=== PATIENT | female | born 2000 | race Caucasian/White ===

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

== ENCOUNTER → 2020-06-26 | Outpatient (CLI) | payer OTHER ==
[~2020-06-26] MED LIST changes: +[UNRECOGNIZED DRUG - OTHER]
== END | disposition home or self-care (01) ==
LOC: LAB SHORT 14:26 → LAB EV 14:26
DX: J03.90 Acute tonsillitis, unspecified (principal)
CPT/HCPCS: 87081

== ENCOUNTER → 2021-12-27 | Outpatient (CLI) | payer OTHER | END | disposition home or self-care (01) | LOC: LAB SHORT 15:03 → LAB 15:03 | DX: N10 Acute pyelonephritis (principal) | CPT/HCPCS: 87077; 87086; 87186 ==

== ENCOUNTER → 2022-03-01 | Outpatient (CLI) | payer OTHER | END | disposition home or self-care (01) | LOC: LAB SHORT 17:57 → LAB 17:57 | DX: N12 Tubulo-interstitial nephritis, not specified as acute or chronic (principal) | CPT/HCPCS: 87077; 87086; 87186 ==

== ENCOUNTER → 2022-06-15 | Outpatient (CLI) | payer OTHER | END | disposition home or self-care (01) | LOC: LAB 14:55 → LAB SHORT 14:55 | DX: N12 Tubulo-interstitial nephritis, not specified as acute or chronic (principal) | CPT/HCPCS: 87077; 87086; 87186 ==

== ENCOUNTER 2022-09-18 22:48 | Emergency (ER) | payer OTHER ==
[~2022-09-18] VITALS: Ht 152.4 cm; Wt 61.2 kg
[2022-09-19] MEDS ORDERED: FAMO20 PO (01:00)
== END 2022-09-19 01:00 | disposition home or self-care (01) ==
LOC: ER 22:48
DX: K62.5 Hemorrhage of anus and rectum (principal); J45.909 Unspecified asthma, uncomplicated; Z91.040 Latex allergy status
CPT/HCPCS: 82272; 99282

== ENCOUNTER → 2023-10-26 | Outpatient (CLI) | payer SELFPAY ==
[~2023-10-26] MED LIST changes: +FAMO20 PO
== END ==
LOC: LAB 12:31 → LAB SHORT 12:31
DX: N39.0 Urinary tract infection, site not specified (principal)
CPT/HCPCS: 87077; 87086; 87186

== ENCOUNTER 2024-11-25 14:34 | Emergency (ER) | payer OTHER ==
[~2024-11-25] VITALS: Ht 157.5 cm; Wt 72.6 kg
[2024-11-25] MEDS ORDERED: Ondansetron 4 MG SoluTab MM ONE (14:45)
[2024-11-25 14:55] LABS: BASOPHILS ABSOLUTE AUTO 0.03 K/mm3 (0.00-0.23); BASOPHILS PERCENT AUTO 0 % (0-2); EOSINOPHILS PERCENT AUTO 0 % (0-6); Hematocrit 42.9 % (33.0-51.0); IMMATURE GRAN ABSOLUTE AUTO 0.06 K/mm3 (0.00-0.10); IMMATURE GRAN PERCENT AUTO 0 % (0-1); LYMPHOCYTES PERCENT AUTO 11 % (21-46); MONOCYTES PERCENT AUTO 7 % (4-13); Mean Corpuscular HGB 34.7 pg (26.0-34.0); Mean Corpuscular HGB Conc 37.3 g/dL (31.5-36.5); Mean Corpuscular Volume 93 fL (80-100); Mean Platelet Volume 9.5 fL (9.1-12.4); NEUTROPHILS ABSOLUTE AUTO 12.44 K/mm3 (1.96-9.15); NEUTROPHILS PERCENT AUTO 82 % (41-73); Platelet Count 371 K/mm3 (150-400); RDW Coefficient Variation 11.5 % (11.7-14.2); RDW Standard Deviation 39.1 fL (35.1-46.3); Red Blood Cell Count 4.61 M/mm3 (3.80-5.20); White Blood Cell Count 15.23 K/mm3 (4.00-11.30)
[2024-11-25 15:31] LABS: Source, Urine Voided
[2024-11-25 15:36] LABS: Appearance, Urine Cloudy (Clear); Blood, Urine 3+ (Neg); Color, Urine Amber (P-Yellow); Glucose Qualitative, Urine Neg (Neg); Ketones, Urine 1+ (Neg); Leukocyte Esterase, Urine 3+ (Neg); Nitrite, Urine Pos (Neg); Protein, Urine 3+ (Neg); Urobilinogen, Urine 3+ (Normal)
[2024-11-25 15:38] LABS: Albumin, Blood 3.4 g/dL (3.4-5.0); Albumin/Globulin Ratio 0.7 (0.8-1.8); Bilirubin, Total 1.6 mg/dL (0.1-1.0); Bun/Creatinine Ratio 8.3 (12.0-20.0); Calcium, Blood 9.4 mg/dL (8.5-10.1); Creatinine, Blood 0.48 mg/dL (0.40-1.00); Globulin, Blood 4.6 g/dL (2.2-4.0); Potassium, Blood 2.9 mmol/L (3.5-5.5)
[2024-11-25] MEDS ORDERED: Ondansetron HCl 2 MG / ML 2ML Vial IV ONE (15:45)
[2024-11-25 16:00] LABS: Bilirubin, Urine 1+ (Neg)
[2024-11-25 16:01] LABS: White Blood Cells, Urine TNTC /hpf (0-5)
[2024-11-25 16:02] LABS: Bacteria Many /hpf; Squamous Epithelial Cells Mod /hpf (Few)
[2024-11-25] MEDS ORDERED: CefTRIAXone Sodium 1,000 MG in NS 50 ML IV ONE (17:20)
[2024-11-25] MEDS ORDERED: Ketorolac Tromethamine 30mg Vial IV ONE (17:35)
[2024-11-25 17:37] VITALS: BP 108/84
[2024-11-25] MEDS ORDERED: ONDA4ODT MM (17:40)
[2024-11-25] MEDS ORDERED: IBUP600 PO (17:40)
[2024-11-25] MEDS ORDERED: CEPH500 PO (17:40)
== END 2024-11-25 17:56 | disposition home or self-care (01) ==
LOC: ER 14:34
PROVIDERS: Emergency Medicine
DX: K85.90 Acute pancreatitis without necrosis or infection, unspecified (principal); N39.0 Urinary tract infection, site not specified; K70.9 Alcoholic liver disease, unspecified; J45.909 Unspecified asthma, uncomplicated; Z91.040 Latex allergy status; Z79.899 Other long term (current) drug therapy
CPT/HCPCS: 74177; 76705; 80053; 81001; 81025; 83690; 85025; 87077; 87086; 87186; 96365-59; 96375; 99284-25; J0696; J1885; J2405; Q9967

== ENCOUNTER → 2025-04-06 | Outpatient (CLI) | payer OTHER ==
[~2025-04-06] MED LIST changes: +CEPH500 PO; +IBUP600 PO; +K-Dur20 MEQ PO; +Naltrexone HCl50 MG PO; +ONDA4ODT MM; +Protonix40 MG PO
[2025-04-06 14:38] LABS: BASOPHILS ABSOLUTE AUTO 0.02 K/mm3 (0.00-0.23); BASOPHILS PERCENT AUTO 0 % (0-2); EOSINOPHILS ABSOLUTE AUTO 0.06 K/mm3 (0.00-0.68); EOSINOPHILS PERCENT AUTO 1 % (0-6); Hematocrit 33.7 % (33.0-51.0); Hemoglobin 12.1 g/dL (11.5-16.0); IMMATURE GRAN ABSOLUTE AUTO 0.05 K/mm3 (0.00-0.10); IMMATURE GRAN PERCENT AUTO 1 % (0-1); LYMPHOCYTES ABSOLUTE AUTO 1.52 K/mm3 (0.84-5.20); LYMPHOCYTES PERCENT AUTO 18 % (21-46); MONOCYTES ABSOLUTE AUTO 0.89 K/mm3 (0.16-1.47); MONOCYTES PERCENT AUTO 11 % (4-13); Mean Corpuscular HGB 33.7 pg (26.0-34.0); Mean Corpuscular HGB Conc 35.9 g/dL (31.5-36.5); Mean Corpuscular Volume 94 fL (80-100); NEUTROPHILS ABSOLUTE AUTO 5.78 K/mm3 (1.96-9.15); NEUTROPHILS PERCENT AUTO 70 % (41-73); Platelet Count 279 K/mm3 (150-400); RDW Coefficient Variation 11.9 % (11.7-14.2); RDW Standard Deviation 41.1 fL (35.1-46.3); Red Blood Cell Count 3.59 M/mm3 (3.80-5.20); White Blood Cell Count 8.32 K/mm3 (4.00-11.30)
[2025-04-06 14:54] LABS: Albumin, Blood 3.1 g/dL (3.4-5.0); Albumin/Globulin Ratio 0.7 (0.8-1.8); Bilirubin, Total 1.6 mg/dL (0.1-1.0); Bun/Creatinine Ratio 7.7 (12.0-20.0); Calcium, Blood 9.3 mg/dL (8.5-10.1); Creatinine, Blood 0.52 mg/dL (0.40-1.00); Globulin, Blood 4.3 g/dL (2.2-4.0); Total Protein, Blood 7.4 g/dL (6.4-8.2)
[2025-04-08 09:26] LABS: HEPATITIS A ANTIBODY, IGM Negative (Negative); HEPATITIS B CORE ANTIBODY, IGM Negative (Negative); HEPATITIS B SURFACE ANTIGEN Negative (Negative); HEPATITIS C AB CIA INTERP Negative (Negative); HEPATITIS C ANTIBODY CIA INDEX 0.03 IV
== END | disposition home or self-care (01) ==
LOC: LAB SHORT 14:34 → LAB 14:34
PROVIDERS: Physician Assistant Medical
DX: R07.9 Chest pain, unspecified (principal); R74.8 Abnormal levels of other serum enzymes
CPT/HCPCS: 80053; 80074; 85025

== ENCOUNTER 2025-04-30 06:08 | Emergency (ER) | payer OTHER ==
[~2025-04-30] VITALS: Ht 157.5 cm; Wt 59.0 kg
[2025-04-30] MEDS ORDERED: PANTOPRAZOLE SO40 M2 PO (06:23)
[2025-04-30] MEDS ORDERED: FLUTICASONE PRO16 GM NS (06:23)
[2025-04-30] MEDS ORDERED: LOTREXONE1.5 MG PO (06:23)
[2025-04-30 07:07] LABS: Alanine Aminotransfer (ALT/SGP 106.0 U/L (12-78); Albumin, Blood 2.9 g/dL (3.4-5.0); Albumin/Globulin Ratio 0.7 (0.8-1.8); Anion Gap 11.0 mmol/L (3-11); Aspartate Aminotrans (AST/SGOT 308.0 U/L (12-37); Bilirubin, Total 1.2 mg/dL (0.1-1.0); Blood Urea Nitrogen 1.0 mg/dL (8-24); CO2, Blood 27.0 mmol/L (21-32); Calcium, Blood 8.7 mg/dL (8.5-10.1); Chloride, Blood 101.0 mmol/L (98-108); Creatinine, Blood 0.31 mg/dL (0.40-1.00); Globulin, Blood 4.3 g/dL (2.2-4.0); Glucose, Blood 98.0 mg/dL (70-99); Potassium, Blood 3.1 mmol/L (3.5-5.5); Sodium, Blood 136.0 mmol/L (136-145); Total Protein, Blood 7.2 g/dL (6.4-8.2)
[2025-04-30 07:12] LABS: BASOPHILS ABSOLUTE AUTO 0.03 K/mm3 (0.00-0.23); BASOPHILS PERCENT AUTO 0 % (0-2); EOSINOPHILS ABSOLUTE AUTO 0.08 K/mm3 (0.00-0.68); EOSINOPHILS PERCENT AUTO 1 % (0-6); Hematocrit 34.1 % (33.0-51.0); Hemoglobin 12.4 g/dL (11.5-16.0); IMMATURE GRAN ABSOLUTE AUTO 0.02 K/mm3 (0.00-0.10); IMMATURE GRAN PERCENT AUTO 0 % (0-1); LYMPHOCYTES ABSOLUTE AUTO 1.91 K/mm3 (0.84-5.20); LYMPHOCYTES PERCENT AUTO 27 % (21-46); MONOCYTES ABSOLUTE AUTO 0.62 K/mm3 (0.16-1.47); MONOCYTES PERCENT AUTO 9 % (4-13); Mean Corpuscular HGB Conc 36.4 g/dL (31.5-36.5); Mean Corpuscular Volume 95 fL (80-100); NEUTROPHILS ABSOLUTE AUTO 4.45 K/mm3 (1.96-9.15); NEUTROPHILS PERCENT AUTO 63 % (41-73); NRBC ABSOLUTE 0.00 K/mm3 (0.00-0.02); NRBC Auto 0.0 /100 WBC (0.0-0.2); RDW Coefficient Variation 12.9 % (11.7-14.2); RDW Standard Deviation 44.6 fL (35.1-46.3)
[2025-04-30] MEDS ORDERED: NS 1,000 ML IV SCH (07:25)
[2025-04-30 07:26] LABS: Source, Urine Clean Catch
[2025-04-30 07:31] LABS: Color, Urine Yellow (P-Yellow); Glucose Qualitative, Urine Neg (Neg); Ketones, Urine Neg (Neg); Leukocyte Esterase, Urine 1+ (Neg); Protein, Urine 2+ (Neg); Specific Gravity, Urine 1.010 (1.003-1.022); Urobilinogen, Urine 3+ (Normal)
[2025-04-30 07:32] LABS: Platelet Count 298 K/mm3 (150-400)
[2025-04-30 07:33] LABS: Bilirubin, Urine 1+ (Neg)
[2025-04-30 07:42] LABS: Magnesium, Blood 1.8 mg/dL (1.6-2.4); Phosphorus, Blood 2.7 mg/dL (2.5-4.9); Thyroid Stimulating Hormone 2.96 uIU/mL (0.360-4.800)
[2025-04-30 07:43] LABS: Red Blood Cells, Urine 0-2 /hpf (0-2)
[2025-04-30] MEDS ORDERED: Ondansetron HCl 2 MG / ML 2ML Vial IV ONE (08:00)
[2025-04-30] MEDS ORDERED: K-Dur20 MEQ PO (08:50)
[2025-04-30 08:55] VITALS: BP 108/78
== END 2025-04-30 09:00 | disposition home or self-care (01) ==
LOC: ER 06:08
PROVIDERS: Student in an Organized Health Care Education/Training Program
DX: E87.6 Hypokalemia (principal); K52.9 Noninfective gastroenteritis and colitis, unspecified; R74.01 Elevation of levels of liver transaminase levels; J45.909 Unspecified asthma, uncomplicated; Z79.2 Long term (current) use of antibiotics; Z88.1 Allergy status to other antibiotic agents; Z91.040 Latex allergy status; Z79.899 Other long term (current) drug therapy
CPT/HCPCS: 80053; 81001; 83735; 84100; 84443; 85025; 87086; 96361; 96374; 99284-25; A9270; J2405; J7030

== ENCOUNTER 2025-05-22 15:37 | Emergency (ER) | payer OTHER ==
[~2025-05-22] VITALS: Ht 152.4 cm; Wt 60.3 kg
[~2025-05-22 15:37] MED LIST changes: +FLUTICASONE PRO16 GM NS; +LOTREXONE1.5 MG PO; +PANTOPRAZOLE SO40 M2 PO
[2025-05-22] MEDS ORDERED: Potassium Chl 20MEQ/Water100ML 100 ML IV ONE (15:55)
[2025-05-22] MEDS ORDERED: NS 1,000 ML IV ONE (18:02)
[2025-05-22] MEDS ORDERED: Ondansetron HCl 2 MG / ML 2ML Vial IV ONE (18:10)
[2025-05-22 18:15] VITALS: BP 117/76
[2025-05-22] MEDS ORDERED: Metoclopramide HCl 5MG / ML 2ML Vial IV ONE (19:30)
[2025-05-22] MEDS ORDERED: METO10 PO (20:47)
[2025-05-22] MEDS ORDERED: POTA20LUD PO (20:47)
== END 2025-05-22 20:57 | disposition home or self-care (01) ==
LOC: ER 15:37
DX: E87.6 Hypokalemia (principal); Z88.1 Allergy status to other antibiotic agents; Z91.040 Latex allergy status; Z79.899 Other long term (current) drug therapy; J45.909 Unspecified asthma, uncomplicated
CPT/HCPCS: 36415; 80053; 96365; 96366; 96375; 99284-25; A9270; J2405; J2765; J3480; J7030

== ENCOUNTER 2025-07-02 06:10 | Inpatient (IN) | payer OTHER ==
[~2025-07-02] VITALS: Ht 160 cm; Wt 61.3 kg
[~2025-07-02 06:10] MED LIST changes: +METO10 PO; +POTA20LUD PO
[2025-07-02] MEDS ORDERED: Ondansetron HCl 2 MG / ML 2ML Vial IV PRN (07:50)
[2025-07-02 08:16] LABS: BASOPHILS ABSOLUTE AUTO 0.03 K/mm3 (0.00-0.23); BASOPHILS PERCENT AUTO 0 % (0-2); EOSINOPHILS ABSOLUTE AUTO 0.03 K/mm3 (0.00-0.68); EOSINOPHILS PERCENT AUTO 0 % (0-6); Hematocrit 32.8 % (33.0-51.0); Hemoglobin 11.3 g/dL (11.5-16.0); IMMATURE GRAN ABSOLUTE AUTO 0.02 K/mm3 (0.00-0.10); IMMATURE GRAN PERCENT AUTO 0 % (0-1); LYMPHOCYTES ABSOLUTE AUTO 1.02 K/mm3 (0.84-5.20); LYMPHOCYTES PERCENT AUTO 10 % (21-46); MONOCYTES ABSOLUTE AUTO 0.87 K/mm3 (0.16-1.47); MONOCYTES PERCENT AUTO 8 % (4-13); Mean Corpuscular HGB Conc 34.5 g/dL (31.5-36.5); Mean Corpuscular Volume 100 fL (80-100); NEUTROPHILS ABSOLUTE AUTO 8.74 K/mm3 (1.96-9.15); NEUTROPHILS PERCENT AUTO 82 % (41-73); NRBC ABSOLUTE 0.00 K/mm3 (0.00-0.02); NRBC Auto 0.0 /100 WBC (0.0-0.2); Platelet Count 230 K/mm3 (150-400); RDW Coefficient Variation 13.3 % (11.7-14.2); RDW Standard Deviation 48.4 fL (35.1-46.3)
[2025-07-02 08:33] LABS: Alanine Aminotransfer (ALT/SGP 80 U/L (12-78); Albumin, Blood 2.8 g/dL (3.4-5.0); Albumin/Globulin Ratio 0.6 (0.8-1.8); Anion Gap 11 mmol/L (3-11); Aspartate Aminotrans (AST/SGOT 301 U/L (12-37); Beta HCG, Quantitative, Serum <1 mIU/mL (0-3); Bilirubin, Total 4.0 mg/dL (0.1-1.0); Blood Urea Nitrogen 2 mg/dL (8-24); CO2, Blood 25 mmol/L (21-32); Calcium, Blood 8.2 mg/dL (8.5-10.1); Chloride, Blood 99 mmol/L (98-108); Creatinine, Blood 0.26 mg/dL (0.40-1.00); Globulin, Blood 4.4 g/dL (2.2-4.0); Glucose, Blood 86 mg/dL (70-99); Potassium, Blood 2.9 mmol/L (3.5-5.5); Sodium, Blood 132 mmol/L (136-145); Total Protein, Blood 7.2 g/dL (6.4-8.2)
[2025-07-02 09:29] LABS: Bilirubin, Direct 2.6 mg/dL (0.0-0.3)
[2025-07-02] MEDS ORDERED: Metoclopramide HCl 5MG / ML 2ML Vial IV ONE ×2 (09:55→16:00)
[2025-07-02] MEDS ORDERED: DiphenhydrAMINE HCl 50 MG/ML 1ML Vial IV ONE ×2 (09:55→15:55)
[2025-07-02] MEDS ORDERED: Potassium Chl 20MEQ/Water100ML 100 ML IV SCH (10:10)
[2025-07-02] MEDS ORDERED: Ketorolac Tromethamine 30mg Vial IV ONE ×2 (10:10→15:55)
[2025-07-02] MEDS ORDERED: NS 1,000 ML IV SCH (10:50)
[2025-07-02] MEDS ORDERED: Metoclopramide HCl 5MG / ML 2ML Vial IV PRN (17:10)
[2025-07-02] MEDS ORDERED: Witch Hazel/Glycerin PADS TOP SCH (18:55)
--- NOTE | 2025-07-02 21:45 | NUR ---
ARRIVAL NOTE PT ARRIVED TO UNIT AT APPROX 2145 TODAY. IS A/OX4 WITH VSS. ABLE TO TRANSFER SELF FROM [facility] WITHOUT DIFFICULTY. DENIES N/V AND PAIN AT THIS TIME. IV INFUSING PER ORDERS. ORIENTATION TO ROOM PROVIDED. PT VERBALIZES UNDERSTANDING AND DENIES NEEDS. HAS CALL LIGHT IN REACH
[2025-07-02] MEDS ORDERED: Ketorolac Tromethamine 15mg Vial IV PRN (23:45)
--- NOTE | 2025-07-03 01:40 | NUR ---
ASSUMED CARE OF PT AT APPROX 2330 FROM CHRISTEN Levi RN. WHEN DOING BEDSIDE REPORT PT REPORTED PAIN 8/10, CALLED DR PADILLA & SHE ORDERED TORADOL SINCE IT WAS GIVEN IN ER. WHEN I WENT TO REASSESS PAIN LEVEL PT STATES SHE IS 7/10 & HAS VERY LITTLE PAIN RELIEF FROM THE TORADOL, AWAITING CALL BACK FROM DR MIKE REGARDING SOMETHING ELSE FOR PAIN.
[2025-07-03] MEDS ORDERED: FentaNYL Citrate 50 MCG/ML 2 ML Injection IV PRN (01:50)
[2025-07-03] MEDS ORDERED: HYDROmorphone HCl/Pf 1MG SYR IV ONE (01:50)
[2025-07-03] MEDS ORDERED: Ondansetron HCl 2 MG / ML 2ML Vial IV PRN (01:50)
[2025-07-03 04:04] VITALS: BP 108/72
[2025-07-03 05:11] LABS: BASOPHILS ABSOLUTE AUTO 0.02 K/mm3 (0.00-0.23); BASOPHILS PERCENT AUTO 0 % (0-2); EOSINOPHILS ABSOLUTE AUTO 0.01 K/mm3 (0.00-0.68); EOSINOPHILS PERCENT AUTO 0 % (0-6); Hematocrit 29.0 % (33.0-51.0); Hemoglobin 9.8 g/dL (11.5-16.0); IMMATURE GRAN ABSOLUTE AUTO 0.04 K/mm3 (0.00-0.10); IMMATURE GRAN PERCENT AUTO 1 % (0-1); LYMPHOCYTES ABSOLUTE AUTO 0.79 K/mm3 (0.84-5.20); LYMPHOCYTES PERCENT AUTO 9 % (21-46); MONOCYTES ABSOLUTE AUTO 0.66 K/mm3 (0.16-1.47); MONOCYTES PERCENT AUTO 8 % (4-13); Mean Corpuscular HGB Conc 33.8 g/dL (31.5-36.5); Mean Corpuscular Volume 102 fL (80-100); NEUTROPHILS ABSOLUTE AUTO 7.15 K/mm3 (1.96-9.15); NEUTROPHILS PERCENT AUTO 83 % (41-73); NRBC ABSOLUTE 0.00 K/mm3 (0.00-0.02); NRBC Auto 0.0 /100 WBC (0.0-0.2); Platelet Count 179 K/mm3 (150-400); RDW Coefficient Variation 13.7 % (11.7-14.2); RDW Standard Deviation 51.2 fL (35.1-46.3)
[2025-07-03 05:25] LABS: Prothrombin Time Results 14.0 Sec (9.7-11.5)
[2025-07-03 05:38] LABS: Alanine Aminotransfer (ALT/SGP 70.0 U/L (12-78); Albumin, Blood 2.5 g/dL (3.4-5.0); Albumin/Globulin Ratio 0.7 (0.8-1.8); Anion Gap 11.0 mmol/L (3-11); Aspartate Aminotrans (AST/SGOT 278.0 U/L (12-37); Bilirubin, Direct 2.9 mg/dL (0.0-0.3); Bilirubin, Total 3.8 mg/dL (0.1-1.0); Blood Urea Nitrogen 2.0 mg/dL (8-24); CO2, Blood 23.0 mmol/L (21-32); Calcium, Blood 7.8 mg/dL (8.5-10.1); Chloride, Blood 104.0 mmol/L (98-108); Creatinine, Blood 0.31 mg/dL (0.40-1.00); Globulin, Blood 3.6 g/dL (2.2-4.0); Glucose, Blood 88.0 mg/dL (70-99); Glutamyl Transpeptidase, GGT 626.0 U/L (5-55); Magnesium, Blood 1.6 mg/dL (1.6-2.4); Potassium, Blood 3.8 mmol/L (3.5-5.5); Sodium, Blood 134.0 mmol/L (136-145); Total Protein, Blood 6.1 g/dL (6.4-8.2)
--- NOTE | 2025-07-03 05:49 | NUR ---
SHIFT SUMMARY AOX4. VSS. REPORTED NAUSEA, MEDICATED 1x W/PO ZOFRAN- NO EMESIS SINCE ARRIVING TO UNIT. TOLERATING DIET. REPORTED 7-8/10 R SIDE ABD PAIN, PT ABLE TO REST COMFORTABLY AFTER RECIEVING 1MG IV DILAUDID. HAS VOIDED IND IN RESTROOM. CALL LIGHT IN REACH & PT ABLE TO MAKE NEEDS KNOWN.
[2025-07-03 07:14] VITALS: BP 108/67
[2025-07-03] MEDS ORDERED: FLU VACC TS2025-26(6MOS UP)/PF 45 MCG/0.5 ML SYRINGE IM SCH (09:00)
[2025-07-03] MEDS ORDERED: NS 1,000 ML IV SCH (16:00)
[2025-07-03 16:23] VITALS: BP 94/55
--- NOTE | 2025-07-03 18:43 | NUR ---
SUMMARY: PT IS A/O, VSS. HIDA COMPLETED TODAY. PT CONTINUES TO HAVE ABD PAIN, INTERMITTANT NAUSEA. TOLERATING CLEAR LIQ, NO EMESIS. INDEP IN ROOM, URINE IS DECREASED AND GERALDINE, DR. HERNANDEZ MADE AWARE AND IV FLUIDS TO INFUSE TONIGHT. MEDICATED PER EMAR FOR PAIN.NO ACUTE CONCERNS.
[2025-07-03 20:08] VITALS: BP 106/67
--- NOTE | 2025-07-04 04:44 | NUR ---
SHIFT SUMMARY PT HAS RESTED MOST THE NIGHT, STILL HAVING INTERMITTENT PAIN AND NAUSEA. PT MEDICATED PER EMAR. PT HAS HAD NO VOMITTING AND WAS ABLE TO KEEP DOWN HER DINNER. PT REPORTS THAT HE HAS HAD LOOSE STOOLS. UP AND AMBULATING INDEPENDENTLY IN ROOM. VITALS STABLE. PLAN OF CARE REMAINS UNCHANGED. BED IN LOWEST POSITION, CALL LIGHT WITHIN REACH.
[2025-07-04 05:28] VITALS: BP 100/56
[2025-07-04 06:14] LABS: BASOPHILS ABSOLUTE AUTO 0.03 K/mm3 (0.00-0.23); BASOPHILS PERCENT AUTO 0 % (0-2); EOSINOPHILS ABSOLUTE AUTO 0.04 K/mm3 (0.00-0.68); EOSINOPHILS PERCENT AUTO 1 % (0-6); Hematocrit 29.6 % (33.0-51.0); Hemoglobin 9.7 g/dL (11.5-16.0); IMMATURE GRAN ABSOLUTE AUTO 0.03 K/mm3 (0.00-0.10); IMMATURE GRAN PERCENT AUTO 0 % (0-1); LYMPHOCYTES ABSOLUTE AUTO 1.38 K/mm3 (0.84-5.20); LYMPHOCYTES PERCENT AUTO 17 % (21-46); MONOCYTES ABSOLUTE AUTO 0.57 K/mm3 (0.16-1.47); MONOCYTES PERCENT AUTO 7 % (4-13); Mean Corpuscular HGB Conc 32.8 g/dL (31.5-36.5); Mean Corpuscular Volume 105 fL (80-100); NEUTROPHILS ABSOLUTE AUTO 6.23 K/mm3 (1.96-9.15); NEUTROPHILS PERCENT AUTO 75 % (41-73); NRBC ABSOLUTE 0.00 K/mm3 (0.00-0.02); NRBC Auto 0.0 /100 WBC (0.0-0.2); Platelet Count 194 K/mm3 (150-400); RDW Coefficient Variation 13.9 % (11.7-14.2); RDW Standard Deviation 53.1 fL (35.1-46.3)
[2025-07-04 06:50] LABS: Alanine Aminotransfer (ALT/SGP 65 U/L (12-78); Albumin, Blood 2.2 g/dL (3.4-5.0); Albumin/Globulin Ratio 0.6 (0.8-1.8); Anion Gap 9 mmol/L (3-11); Aspartate Aminotrans (AST/SGOT 240 U/L (12-37); Bilirubin, Total 3.5 mg/dL (0.1-1.0); Blood Urea Nitrogen <1 mg/dL (8-24); CO2, Blood 25 mmol/L (21-32); Calcium, Blood 8.0 mg/dL (8.5-10.1); Chloride, Blood 108 mmol/L (98-108); Creatinine, Blood 0.34 mg/dL (0.40-1.00); Globulin, Blood 3.6 g/dL (2.2-4.0); Glucose, Blood 76 mg/dL (70-99); Potassium, Blood 3.9 mmol/L (3.5-5.5); Sodium, Blood 138 mmol/L (136-145); Total Protein, Blood 5.8 g/dL (6.4-8.2)
[2025-07-04 07:03] VITALS: BP 105/74
[2025-07-04] MEDS ORDERED: HYDROcodone 5-APAP 325 TAB PO PRN (11:55)
--- NOTE | 2025-07-04 13:29 | NUR ---
PT WITH LOOSE STOOLS. REQUESTING IMODIUM. PLAN IS TO CONTACT MD AND REQUEST THIS FOR PT. WILL CONTINUE TO MONITOR.
[2025-07-04 15:14] VITALS: BP 105/64
[2025-07-04 19:24] VITALS: BP 120/76
[2025-07-04] MEDS ORDERED: Prochlorperazine Edisylate 10 mg Vial IV PRN (20:15)
[2025-07-04] MEDS ORDERED: Ondansetron HCl 2 MG / ML 2ML Vial IV PRN (20:15)
--- NOTE | 2025-07-04 22:02 | NUR ---
NAUSEA/EMESIS *LATE ENTRY* WHILE RECIEVING BEDSIDE REPORT PT STARTS HAVING EMESIS, MEDICATED W/REGLAN PER EMAR AROUND 1900. TOTAL OF 200ML EMESIS, CONSISTING OF UNDIGESTED FOOD. APPROX 1HR LATER PT REPORTING FURTHER EMESIS & NAUSEA, NOT TIME FOR ZOFRAN SINCE IT IS SCHEDULED Q6HR. CALLED MARIA DEL ROSARIO P & HE CHANGED ORDER TO Q4H & ADDED COMPAZINE & DC'D REGLAN SINCE PT REPORTS IT DOESNT WORK WELL ZOFRAN. 2ND EMESIS TOTAL 100ML GREENISH IN COLOR. PT HAD 3RD EPISODE NAUSEA @2029, ONLY DRY HEAVING NO EMESIS.
[2025-07-05 03:48] VITALS: BP 112/79
[2025-07-05 04:36] LABS: BASOPHILS ABSOLUTE AUTO 0.02 K/mm3 (0.00-0.23); BASOPHILS PERCENT AUTO 0 % (0-2); EOSINOPHILS ABSOLUTE AUTO 0.04 K/mm3 (0.00-0.68); EOSINOPHILS PERCENT AUTO 0 % (0-6); Hematocrit 31.7 % (33.0-51.0); Hemoglobin 10.4 g/dL (11.5-16.0); IMMATURE GRAN ABSOLUTE AUTO 0.03 K/mm3 (0.00-0.10); IMMATURE GRAN PERCENT AUTO 0 % (0-1); LYMPHOCYTES ABSOLUTE AUTO 1.40 K/mm3 (0.84-5.20); LYMPHOCYTES PERCENT AUTO 15 % (21-46); MONOCYTES ABSOLUTE AUTO 0.72 K/mm3 (0.16-1.47); MONOCYTES PERCENT AUTO 7 % (4-13); Mean Corpuscular HGB Conc 32.8 g/dL (31.5-36.5); Mean Corpuscular Volume 105 fL (80-100); NEUTROPHILS ABSOLUTE AUTO 7.46 K/mm3 (1.96-9.15); NEUTROPHILS PERCENT AUTO 77 % (41-73); NRBC ABSOLUTE 0.00 K/mm3 (0.00-0.02); NRBC Auto 0.0 /100 WBC (0.0-0.2); Platelet Count 229 K/mm3 (150-400); RDW Coefficient Variation 14.1 % (11.7-14.2); RDW Standard Deviation 53.8 fL (35.1-46.3)
[2025-07-05 05:12] LABS: Alanine Aminotransfer (ALT/SGP 67.0 U/L (12-78); Albumin, Blood 2.4 g/dL (3.4-5.0); Albumin/Globulin Ratio 0.6 (0.8-1.8); Anion Gap 11.0 mmol/L (3-11); Aspartate Aminotrans (AST/SGOT 246.0 U/L (12-37); Bilirubin, Total 3.5 mg/dL (0.1-1.0); Blood Urea Nitrogen 1.0 mg/dL (8-24); CO2, Blood 21.0 mmol/L (21-32); Calcium, Blood 8.3 mg/dL (8.5-10.1); Chloride, Blood 110.0 mmol/L (98-108); Creatinine, Blood 0.32 mg/dL (0.40-1.00); Globulin, Blood 3.7 g/dL (2.2-4.0); Glucose, Blood 93.0 mg/dL (70-99); Potassium, Blood 3.5 mmol/L (3.5-5.5); Sodium, Blood 138.0 mmol/L (136-145); Total Protein, Blood 6.1 g/dL (6.4-8.2)
[2025-07-05 07:20] VITALS: BP 101/61
--- NOTE | 2025-07-05 07:41 | NUR ---
SHIFT SUMMARY AOX4. ABD DISTENDED, PT HAD 2 EPISODES EMESIS W/300ML TOTAL & 1 EPISODE DRY HEAVING. REPORTED ZOFRAN WORKS BEST FOR NAUSEA RELIEF. RUQ ABD PAIN MANAGED W/50MCG IV FENTANYL & NORCO. NO BMS THIS SHIFT. PT UP TO AMBULATE HALLS 1x W/BOYFRIEND. PT HAD SHOWER TONIGHT. VSS. CALL LIGHT IN REACH. PER SPARERIBS TRIMMERGALEN Lee PT TURNED OFF IV PUMP THIS AM WHILE I WAS IN ANOTHER RM BECAUSE IT WAS ANNOYING HER & BEEPING, CHARGE DISCUSSED IMPORTANCE OF LEAVING IV PUMPS ALONE.
[2025-07-05 08:23] LABS: Campylobacter Sp Not Detected (NOT DETECT); E. Coli O157 Not Detected (NOT DETECT); Enteroaggregative E. coli-EAEC Not Detected (NOT DETECT); Enteropathogenic E. coli-EPEC Not Detected (NOT DETECT); Enterotoxigenic E. coli-ETEC Not Detected (NOT DETECT); Salmonella Sp Not Detected (NOT DETECT); Shiga Toxin-prod E. coli-STEC Not Detected (NOT DETECT); Shigella/Enteroin E. coli-EIEC Not Detected (NOT DETECT); Vibrio Sp Not Detected (NOT DETECT)
[2025-07-05 11:21] LABS: HEPATITIS A ANTIBODY, IGM Negative (Negative); HEPATITIS C AB CIA INTERP Negative (Negative); HEPATITIS C ANTIBODY CIA INDEX 0.08 IV
[2025-07-05 16:27] VITALS: BP 106/67
[2025-07-05 19:15] VITALS: BP 125/91
[2025-07-06 03:52] VITALS: BP 113/75
--- NOTE | 2025-07-06 04:48 | NUR ---
SHIFT SUMMARY NO ACUTE EVENTS OVERNIGHT. PT MEDICATED APPROXIMATELY EVERY 4 HOURS FOR PAIN/NAUSEA. PT WITH MULTIPLE TRIPS TO RESTROOM TO VOID OVERNIGHT. PT TOLERATING PO INTAKE.
[2025-07-06 05:30] LABS: BASOPHILS ABSOLUTE AUTO 0.02 K/mm3 (0.00-0.23); BASOPHILS PERCENT AUTO 0 % (0-2); EOSINOPHILS ABSOLUTE AUTO 0.04 K/mm3 (0.00-0.68); EOSINOPHILS PERCENT AUTO 0 % (0-6); Hematocrit 29.1 % (33.0-51.0); Hemoglobin 9.6 g/dL (11.5-16.0); IMMATURE GRAN ABSOLUTE AUTO 0.03 K/mm3 (0.00-0.10); IMMATURE GRAN PERCENT AUTO 0 % (0-1); LYMPHOCYTES ABSOLUTE AUTO 1.14 K/mm3 (0.84-5.20); LYMPHOCYTES PERCENT AUTO 13 % (21-46); MONOCYTES ABSOLUTE AUTO 0.79 K/mm3 (0.16-1.47); MONOCYTES PERCENT AUTO 9 % (4-13); Mean Corpuscular HGB Conc 33.0 g/dL (31.5-36.5); Mean Corpuscular Volume 105 fL (80-100); NEUTROPHILS ABSOLUTE AUTO 6.96 K/mm3 (1.96-9.15); NEUTROPHILS PERCENT AUTO 78 % (41-73); NRBC ABSOLUTE 0.00 K/mm3 (0.00-0.02); NRBC Auto 0.0 /100 WBC (0.0-0.2); Platelet Count 199 K/mm3 (150-400); RDW Coefficient Variation 14.2 % (11.7-14.2); RDW Standard Deviation 54.2 fL (35.1-46.3)
[2025-07-06 06:08] LABS: Alanine Aminotransfer (ALT/SGP 67 U/L (12-78); Albumin, Blood 2.2 g/dL (3.4-5.0); Albumin/Globulin Ratio 0.6 (0.8-1.8); Anion Gap 9 mmol/L (3-11); Aspartate Aminotrans (AST/SGOT 251 U/L (12-37); Bilirubin, Total 3.4 mg/dL (0.1-1.0); Blood Urea Nitrogen <1 mg/dL (8-24); CO2, Blood 21 mmol/L (21-32); Calcium, Blood 7.7 mg/dL (8.5-10.1); Chloride, Blood 112 mmol/L (98-108); Creatinine, Blood 0.28 mg/dL (0.40-1.00); Globulin, Blood 3.4 g/dL (2.2-4.0); Glucose, Blood 76 mg/dL (70-99); Potassium, Blood 2.9 mmol/L (3.5-5.5); Sodium, Blood 139 mmol/L (136-145); Total Protein, Blood 5.6 g/dL (6.4-8.2)
[2025-07-06 07:52] VITALS: BP 114/72
[2025-07-06] MEDS ORDERED: ONDA4ODT MM (14:14)
[2025-07-06] MEDS ORDERED: POTCHL20ER PO (14:14)
--- NOTE | 2025-07-06 14:35 | NUR ---
PT DC'D @0471 ASSUMED CARE OF PT @0700, VSS, AXO4. CONTINUED WITH NAUSEA / NO VOMITING / CONTINUES WITH DIARRHEA - PROVIDER DEREJE AWARE. KCL REPLACED PER LAB RESULTS. PT STATES PO NAUSEA MEDS SUCCESFUL AT ALLEVIATING NAUSEA BUT NAUSEA WORSENS WITH KCL ADMINISTRATION - ATTEMPTED TO TIME NAUSEA MEDS WITH KCL. PT WANTING TO GO HOME.DR REYEZ ASSESSED PT, STATED IF PT TOLERATED PO LUNCH, THAN DEEMED PT OK TO DC. PT TOLERATED LUNCH UP TO 50% OF MEAL - PT STATES SHE IS A "SNACKER" AT HOME AND THIS WAS NORMAL FOR HER. DEREJE NOTIFIED - DC ORDERS RECEIVED. INSTRUCTIONS PROVIDED FOR DC. IV LINE PULLED OUT. NO ACUTE CHANGES FROM ASSUMPTION. PT WALKED OUT OF ROOM AND DC'D WITH BELONGINGS @2147.
== END 2025-07-06 14:40 | disposition home or self-care (01) | DRG 445 ==
LOC: ER 06:10 → ERHOLD 17:05 → SURS 21:25
PROVIDERS: Family Medicine; Student in an Organized Health Care Education/Training Program; ADMIT Family Medicine
DX: K81.0 Acute cholecystitis (principal); E87.1 Hypo-osmolality and hyponatremia; F10.10 Alcohol abuse, uncomplicated; J45.909 Unspecified asthma, uncomplicated; E87.6 Hypokalemia; R74.01 Elevation of levels of liver transaminase levels; E80.6 Other disorders of bilirubin metabolism; K76.0 Fatty (change of) liver, not elsewhere classified; K70.10 Alcoholic hepatitis without ascites; Z88.1 Allergy status to other antibiotic agents; Z79.899 Other long term (current) drug therapy; Z91.040 Latex allergy status; Z71.41 Alcohol abuse counseling and surveillance of alcoholic
CPT/HCPCS: 36415; 74181; 76705; 78226; 80053; 80074; 81025; 82248; 82977; 83690; 83735; 84702; 85025; 85610; 87507; 96361; 96365; 96366; 96375; 96376; 99284-25; A9270; A9537; J0780; J1171; J1200; J1885; J2405; J2765; J3010; J3480; J7030; J7120

== ENCOUNTER → 2025-07-23 | Outpatient (CLI) | payer OTHER ==
[~2025-07-23] MED LIST changes: +POTCHL20ER PO
[2025-07-23 12:13] LABS: BASOPHILS ABSOLUTE AUTO 0.03 K/mm3 (0.00-0.23); BASOPHILS PERCENT AUTO 0 % (0-2); EOSINOPHILS ABSOLUTE AUTO 0.15 K/mm3 (0.00-0.68); EOSINOPHILS PERCENT AUTO 2 % (0-6); Hematocrit 29.7 % (33.0-51.0); Hemoglobin 10.1 g/dL (11.5-16.0); IMMATURE GRAN ABSOLUTE AUTO 0.04 K/mm3 (0.00-0.10); IMMATURE GRAN PERCENT AUTO 0 % (0-1); LYMPHOCYTES ABSOLUTE AUTO 1.48 K/mm3 (0.84-5.20); LYMPHOCYTES PERCENT AUTO 15 % (21-46); MONOCYTES ABSOLUTE AUTO 0.87 K/mm3 (0.16-1.47); MONOCYTES PERCENT AUTO 9 % (4-13); Mean Corpuscular HGB Conc 34.0 g/dL (31.5-36.5); Mean Corpuscular Volume 99 fL (80-100); NEUTROPHILS ABSOLUTE AUTO 7.38 K/mm3 (1.96-9.15); NEUTROPHILS PERCENT AUTO 74 % (41-73); NRBC ABSOLUTE 0.00 K/mm3 (0.00-0.02); NRBC Auto 0.0 /100 WBC (0.0-0.2); Platelet Count 430 K/mm3 (150-400); RDW Coefficient Variation 14.8 % (11.7-14.2); RDW Standard Deviation 54.0 fL (35.1-46.3)
[2025-07-23 12:25] LABS: Alanine Aminotransfer (ALT/SGP 97.0 U/L (12-78); Albumin, Blood 2.4 g/dL (3.4-5.0); Albumin/Globulin Ratio 0.5 (0.8-1.8); Anion Gap 12.0 mmol/L (3-11); Aspartate Aminotrans (AST/SGOT 541.0 U/L (12-37); Bilirubin, Direct 3.2 mg/dL (0.0-0.3); Bilirubin, Total 3.8 mg/dL (0.1-1.0); Blood Urea Nitrogen 2.0 mg/dL (8-24); CO2, Blood 26.0 mmol/L (21-32); Calcium, Blood 8.6 mg/dL (8.5-10.1); Chloride, Blood 104.0 mmol/L (98-108); Creatinine, Blood 0.35 mg/dL (0.40-1.00); Globulin, Blood 4.8 g/dL (2.2-4.0); Glucose, Blood 96.0 mg/dL (70-99); Magnesium, Blood 2.1 mg/dL (1.6-2.4); Potassium, Blood 3.4 mmol/L (3.5-5.5); Sodium, Blood 139.0 mmol/L (136-145); Total Protein, Blood 7.2 g/dL (6.4-8.2)
[2025-07-23 14:19] LABS: Ferritin, Serum 275.0 ng/mL (8-252); Total Iron Binding Capacity 102.0 ug/dL (250-450)
== END ==
LOC: LAB SHORT 12:05 → LAB 12:05
PROVIDERS: Chiropractor
DX: R17 Unspecified jaundice (principal)
CPT/HCPCS: 80053; 82248; 82607; 82728; 82746; 83540; 83550; 83735; 85025

== ENCOUNTER 2025-09-07 05:48 | Inpatient (IN) | payer OTHER ==
[~2025-09-07] VITALS: Ht 157.5 cm; Wt 53.5 kg
[2025-09-07] VITALS (60 sets, daily range): BP systolic 80–110; BP diastolic 44–87
[2025-09-07] MEDS ORDERED: Midazolam HCL 50 MG in NS 40 ML IV PRN (06:00)
[2025-09-07] MEDS ORDERED: NS 1,000 ML IV SCH (06:00)
[2025-09-07 06:06] LABS: BASOPHILS ABSOLUTE AUTO 0.13 K/mm3 (0.00-0.23); BASOPHILS PERCENT AUTO 0 % (0-2); EOSINOPHILS ABSOLUTE AUTO 0.18 K/mm3 (0.00-0.68); EOSINOPHILS PERCENT AUTO 1 % (0-6); Hematocrit 26.1 % (33.0-51.0); Hemoglobin 9.0 g/dL (11.5-16.0); IMMATURE GRAN ABSOLUTE AUTO 0.85 K/mm3 (0.00-0.10); IMMATURE GRAN PERCENT AUTO 3 % (0-1); LYMPHOCYTES ABSOLUTE AUTO 9.29 K/mm3 (0.84-5.20); LYMPHOCYTES PERCENT AUTO 30 % (21-46); MONOCYTES ABSOLUTE AUTO 1.82 K/mm3 (0.16-1.47); MONOCYTES PERCENT AUTO 6 % (4-13); Mean Corpuscular HGB Conc 34.5 g/dL (31.5-36.5); Mean Corpuscular Volume 95 fL (80-100); NEUTROPHILS ABSOLUTE AUTO 18.34 K/mm3 (1.96-9.15); NEUTROPHILS PERCENT AUTO 60 % (41-73); NRBC ABSOLUTE 0.04 K/mm3 (0.00-0.02); NRBC Auto 0.1 /100 WBC (0.0-0.2); Platelet Count 321 K/mm3 (150-400); RDW Coefficient Variation 14.8 % (11.7-14.2); RDW Standard Deviation 51.0 fL (35.1-46.3)
[2025-09-07] MEDS ORDERED: Potassium Chl 20MEQ/Water100ML 100 ML IV SCH ×2 (06:10→13:30)
[2025-09-07 06:11] LABS: Calcium, Ionized (POC) 1.06 mmol/L (1.10-1.46); Chloride (POC) 100 mmol/L (98-108); Creatinine (POC) 0.8 mg/dL (0.6-1.0); Glucose (ISTAT POC) 168 mg/dL (70-99); Hematocrit (POC) 27.0 % (36.0-46.0); Hemoglobin (POC) 9.2 g/dL (12.0-16.0); Potassium (POC) <2.0 mmol/L (3.5-5.5); Sodium (POC) 139 mmol/L (135-148); Total CO2 (POC) 19 mmol/L (21-32)
[2025-09-07 06:24] LABS: Prothrombin Time Results 16.0 Sec (9.7-11.5)
[2025-09-07] MEDS ORDERED: LORazepam 2 MG/ML 1ML Injection IV ONE (06:45)
[2025-09-07 06:53] LABS: Acetaminophen, Random 22.8 ug/mL (10.0-30.0); Ethanol (Alcohol), Blood, Med <3 mg/dL; Magnesium, Blood 1.9 mg/dL (1.6-2.4); Thyroid Stimulating Hormone 4.800 uIU/mL (0.360-4.800)
[2025-09-07 07:02] LABS: Alanine Aminotransfer (ALT/SGP 49 U/L (12-78); Albumin, Blood 2.4 g/dL (3.4-5.0); Albumin/Globulin Ratio 0.5 (0.8-1.8); Anion Gap 18 mmol/L (3-11); Aspartate Aminotrans (AST/SGOT 186 U/L (12-37); Bilirubin, Total 5.5 mg/dL (0.1-1.0); Blood Urea Nitrogen 8 mg/dL (8-24); CO2, Blood 17 mmol/L (21-32); Calcium, Blood 8.0 mg/dL (8.5-10.1); Chloride, Blood 102 mmol/L (98-108); Creatinine, Blood 0.62 mg/dL (0.40-1.00); Globulin, Blood 4.5 g/dL (2.2-4.0); Glucose, Blood 170 mg/dL (70-99); Phosphorus, Blood 3.4 mg/dL (2.5-4.9); Potassium, Blood 2.0 mmol/L (3.5-5.5); Salicylate <1.7 mg/dL (2.8-20.0); Sodium, Blood 135 mmol/L (136-145); Total Protein, Blood 6.9 g/dL (6.4-8.2)
[2025-09-07] MEDS ORDERED: CALCIUM GLUC IN NACL, ISO-OSM 50 ML IV ONE (07:05)
[2025-09-07] MEDS ORDERED: Piperacillin/Tazobactam Sod 3.375 GM in NS 100 ML IV ONE (07:05)
[2025-09-07 07:36] LABS: Source, Urine Clean Catch
[2025-09-07 07:40] LABS: Bilirubin, Urine Neg (Neg); Color, Urine Yellow (P-Yellow); Glucose Qualitative, Urine Neg (Neg); Ketones, Urine Neg (Neg); Leukocyte Esterase, Urine Neg (Neg); Protein, Urine 3+ (Neg); Specific Gravity, Urine 1.010 (1.003-1.022); Urobilinogen, Urine NORM (Normal)
[2025-09-07 07:51] LABS: Red Blood Cells, Urine 0-2 /hpf (0-2)
[2025-09-07 07:53] LABS: U Amphetamine Screen Not Detected; U Barbiturate Screen Not Detected; U Benzodiazapine Screen Not Detected; U Buprenorphine Screen Not Detected; U Cannabinoids Screen DETECTED; U Cocaine Screen Not Detected; U Methadone Screen Not Detected; U Methamphetamine Screen Not Detected; U Opiates Screen Not Detected; U Oxycodone Screen Not Detected; U Phencyclidine Screen Not Detected
[2025-09-07] MEDS ORDERED: FLU VACC TS2025-26(6MOS UP)/PF 45 MCG/0.5 ML SYRINGE IM SCH (08:30)
[2025-09-07] MEDS ORDERED: Ondansetron HCl 2 MG / ML 2ML Vial IV PRN (08:30)
[2025-09-07] MEDS ORDERED: CefTRIAXone Sodium 1,000 MG in NS 100 ML IV SCH (09:00)
[2025-09-07 09:09] LABS: pH Blood Venous 7.37 (7.34-7.37)
[2025-09-07] MEDS ORDERED: Amiodarone HCl 450 MG in NS 250 ML IV SCH (11:55)
[2025-09-07] MEDS ORDERED: Amiodarone HCl 150 MG in NS 100 ML IV ONE (12:05)
--- NOTE | 2025-09-07 12:30 | NUR ---
PT ADMITTED TO ICU 8 FROM ER AT 0830. INTUBATED, WAS ON PROPOFOL AND FENTANYL. HAD BEEN VERY SEDATED. TITRATED SEDATION DOWN PER DR. ABBASI, NOT LONG INTO SEDATION VACATION HR STARTED GOING IN TO UNSUSTAINED VTACH. PT NEVER LOST PULSE WITH VTACH. LABS DRAWN, CONTINUOUS EKG OBTAINED, MAG FROM [facility] GIVEN WELL AMIO BOLUS. STARTED ON AMIO GTT AFTER BOLUS COMPLETE. POTASSIUM PER OG TUBE GIVEN. PT HYPOTENSIVE, ANOTHER LR BOLUS WAS GIVEN. PT MOVING ALL EXTREMITIES. ECHO DONE WITH DR. FLOREZ AT BEDSIDE TO REVIEW. MOM AT BEDSIDE UPDATED T/O EVENTS. DR. ABBASI WANTS TO PLACE CENTRAL LINE ONCE POTASSIUM LEVEL IS MORE STABLE. ONCE MAG AND AMIO WERE STARTED PT HR IS MAINTAINING ST 104-111.
[2025-09-07 12:34] LABS: Magnesium, Blood 1.4 mg/dL (1.6-2.4)
[2025-09-07 12:55] LABS: Alanine Aminotransfer (ALT/SGP 41.0 U/L (12-78); Albumin, Blood 1.9 g/dL (3.4-5.0); Albumin/Globulin Ratio 0.5 (0.8-1.8); Anion Gap 17.0 mmol/L (3-11); Aspartate Aminotrans (AST/SGOT 134.0 U/L (12-37); Bilirubin, Total 4.5 mg/dL (0.1-1.0); Blood Urea Nitrogen 5.0 mg/dL (8-24); CO2, Blood 18.0 mmol/L (21-32); Calcium, Blood 7.2 mg/dL (8.5-10.1); Chloride, Blood 114.0 mmol/L (98-108); Creatinine, Blood 0.46 mg/dL (0.40-1.00); Globulin, Blood 4.0 g/dL (2.2-4.0); Glucose, Blood 78.0 mg/dL (70-99); Potassium, Blood 2.7 mmol/L (3.5-5.5); Total Protein, Blood 5.9 g/dL (6.4-8.2)
[2025-09-07 12:59] LABS: Sodium, Blood 146.0 mmol/L (136-145)
[2025-09-07] MEDS ORDERED: Magnesium Sulf 2 GM/Water 50ML 50 ML IV ONE (13:05)
--- NOTE | 2025-09-07 13:30 | NUR ---
PT SITTING UP IN BED, GAGGING ON ETT, VOMITTED AROUND ETT. PT MOVES ALL EXTREMITIES AND MAKES EYE CONTACT WITH MOM. INCREASED PROPOFOL AND FENTANYL PER DR. ABBASI.
--- NOTE | 2025-09-07 13:36 | NUR ---
PALLIATIVE CONSULT RECEIVED. PT IS A 25 YEAR OLD FEMALE WHO WAS FOUND DOWN IN HER BED BY FAMILY. REQUEST VIA PALLIATIVE FOR SPIRITUAL CARE. [employer] MEMBER UPDATED.
[2025-09-07] MEDS ORDERED: Enoxaparin 40 MG/0.4 ML SYR SC SCH (14:00)
--- NOTE | 2025-09-07 14:20 | NUR ---
The patient is lying in bed and is restless. Her mother and sister are bedside. THey tell me about the events that led to her admission to the hospital and about the patient's fiesty attitude. They share about the large family/friends pulling for her. The family welcome prayer, which I galdly supply after I had provided a calming presence and therapeutic listening. I will continue to remain available.
[2025-09-07] MEDS ORDERED: Hydrogen Peroxide 1.5 % Solution MT SCH (16:00)
[2025-09-07] MEDS ORDERED: Pantoprazole Sodium 40 MG Injection IV SCH (16:30)
[2025-09-07] MEDS ORDERED: Amiodarone HCl 50 MG / ML 3 ML Amp IV ONE (17:16)
[2025-09-07] MEDS ORDERED: Magnesium Sulfate 500 MG / ML 2ML Vial IV ONE (17:16)
--- NOTE | 2025-09-07 18:40 | NUR ---
SUMMARY PT WAS NEW ADMIT THIS AM FROM ER. INTUBATED AND SEDATED WITH PROPOFOL AND FENTANYL. PT HAD RUNS OF VTACH THIS AFTERNOON BUT NEVER LOST PULSE. REPLENISHING POTASSIUM AND MAGNESIUM ALL DAY. RUNS OF VTACH COINCIDED WITH SEDATION BEING TURNED DOWN. DR. FLOREZ SAW PT AND WATCHED ECHO DONE AT BEDSIDE. PT HAS NOT HAD ANYMORE VTACH AFTER MAG AND AMIODORONE GTT WAS STARTED, WELL SEDATION BEING TURNED UP. PT DID SIT UP IN BED AT ONE POINT AND MADE EYE CONTACT WITH HER MOM AND SEEMED TO UNDERSTAND INSTRUCTIONS TO LAY BACK DOWN. MOVES ALL EXTREMITIES. HAS BEEN HYPOTENSIVE TODAY, DR. ABBASI AWARE. GETTING ACETYLCYSTEINE REGIMEN FOR TYLENOL LEVEL.
[2025-09-07] MEDS ORDERED: GABA100 PO (19:38)
[2025-09-07] MEDS ORDERED: OXYC5 (19:39)
[2025-09-07] MEDS ORDERED: Cetylpyridinium Chloride 1 EA MISC MT SCH (20:00)
[2025-09-07 20:54] LABS: Magnesium, Blood 2.3 mg/dL (1.6-2.4)
[2025-09-07 21:01] LABS: Alanine Aminotransfer (ALT/SGP 52.0 U/L (12-78); Albumin, Blood 2.2 g/dL (3.4-5.0); Albumin/Globulin Ratio 0.6 (0.8-1.8); Anion Gap 12.0 mmol/L (3-11); Aspartate Aminotrans (AST/SGOT 171.0 U/L (12-37); Bilirubin, Total 5.5 mg/dL (0.1-1.0); Blood Urea Nitrogen 5.0 mg/dL (8-24); CO2, Blood 19.0 mmol/L (21-32); Calcium, Blood 7.5 mg/dL (8.5-10.1); Chloride, Blood 110.0 mmol/L (98-108); Creatinine, Blood 0.41 mg/dL (0.40-1.00); Globulin, Blood 4.0 g/dL (2.2-4.0); Glucose, Blood 138.0 mg/dL (70-99); Potassium, Blood 5.0 mmol/L (3.5-5.5); Sodium, Blood 136.0 mmol/L (136-145); Total Protein, Blood 6.2 g/dL (6.4-8.2)
[2025-09-08] VITALS (63 sets, daily range): BP systolic 77–126; BP diastolic 44–90
[2025-09-08 03:23] LABS: BASOPHILS ABSOLUTE AUTO 0.04 K/mm3 (0.00-0.23); BASOPHILS PERCENT AUTO 0 % (0-2); EOSINOPHILS ABSOLUTE AUTO 0.14 K/mm3 (0.00-0.68); EOSINOPHILS PERCENT AUTO 1 % (0-6); Hematocrit 19.4 % (33.0-51.0); Hemoglobin 7.2 g/dL (11.5-16.0); IMMATURE GRAN ABSOLUTE AUTO 0.09 K/mm3 (0.00-0.10); IMMATURE GRAN PERCENT AUTO 1 % (0-1); LYMPHOCYTES ABSOLUTE AUTO 3.13 K/mm3 (0.84-5.20); LYMPHOCYTES PERCENT AUTO 19 % (21-46); MONOCYTES ABSOLUTE AUTO 1.25 K/mm3 (0.16-1.47); MONOCYTES PERCENT AUTO 8 % (4-13); Mean Corpuscular HGB Conc 37.1 g/dL (31.5-36.5); Mean Corpuscular Volume 93 fL (80-100); NEUTROPHILS ABSOLUTE AUTO 12.07 K/mm3 (1.96-9.15); NEUTROPHILS PERCENT AUTO 72 % (41-73); NRBC ABSOLUTE 0.00 K/mm3 (0.00-0.02); NRBC Auto 0.0 /100 WBC (0.0-0.2); Platelet Count 206 K/mm3 (150-400); RDW Coefficient Variation 15.3 % (11.7-14.2); RDW Standard Deviation 51.8 fL (35.1-46.3)
--- NOTE | 2025-09-08 03:45 | NUR ---
AMIO PAUSED DUE TO LENGTHENING QTc and AM labs sent. PT INTO VTACH AGAIN. NOT SUSTAINED. CONTACTED DR. MIKE. HE AGREED THAT IF PT QTc REMAINS LONGER THAN 550 TO LEAVE AMIO OFF. 12 LEAD DONE POST VTACH EPISODE, QTc WAS NORMAL, AMIO RESTARTED PER RASHID.
[2025-09-08 04:23] LABS: Magnesium, Blood 2.0 mg/dL (1.6-2.4)
[2025-09-08 04:26] LABS: Alanine Aminotransfer (ALT/SGP 48.0 U/L (12-78); Albumin, Blood 1.9 g/dL (3.4-5.0); Albumin/Globulin Ratio 0.5 (0.8-1.8); Anion Gap 9.0 mmol/L (3-11); Aspartate Aminotrans (AST/SGOT 174.0 U/L (12-37); Bilirubin, Total 5.1 mg/dL (0.1-1.0); Blood Urea Nitrogen 4.0 mg/dL (8-24); CO2, Blood 20.0 mmol/L (21-32); Calcium, Blood 7.4 mg/dL (8.5-10.1); Chloride, Blood 111.0 mmol/L (98-108); Creatinine, Blood 0.44 mg/dL (0.40-1.00); Globulin, Blood 3.6 g/dL (2.2-4.0); Glucose, Blood 87.0 mg/dL (70-99); Phosphorus, Blood 0.8 mg/dL (2.5-4.9); Potassium, Blood 4.1 mmol/L (3.5-5.5); Sodium, Blood 136.0 mmol/L (136-145); Total Protein, Blood 5.5 g/dL (6.4-8.2)
[2025-09-08] MEDS ORDERED: Mag Sulfate 1 GM/D5% 100ML 100 ML IV ONE (04:35)
[2025-09-08] MEDS ORDERED: NS 250 ML IV PRN (04:45)
--- NOTE | 2025-09-08 04:59 | NUR ---
PT UPDATE PT INTO TORSADES. SUSTAINED FOR LONGER THIS TIME. AMIO GTT STOPPED. RASHID CONTACTED, ORDERS FOR MAG AND SODIUM PHOS GIVEN.
[2025-09-08] MEDS ORDERED: CALCIUM GLUC IN NACL, ISO-OSM 50 ML IV ONE (05:00)
[2025-09-08] MEDS ORDERED: Potassium Chl 20MEQ/Water100ML 100 ML IV SCH (06:00)
[2025-09-08 06:10] LABS: Calcium, Ionized (POC) 1.08 mmol/L (1.10-1.46); Chloride (POC) 111 mmol/L (98-108); Creatinine (POC) 0.4 mg/dL (0.6-1.0); Glucose (ISTAT POC) 117 mg/dL (70-99); Hematocrit (POC) 19.0 % (36.0-46.0); Hemoglobin (POC) 6.5 g/dL (12.0-16.0); Potassium (POC) 3.7 mmol/L (3.5-5.5); Sodium (POC) 140 mmol/L (135-148); Total CO2 (POC) 16 mmol/L (21-32)
[2025-09-08] MEDS ORDERED: Amiodarone HCl 150 MG in NS 100 ML IV ONE (06:15)
[2025-09-08] MEDS ORDERED: Amiodarone HCl 450 MG in NS 250 ML IV SCH (06:15)
--- NOTE | 2025-09-08 06:21 | NUR ---
PROVIDER CONTACTED THIS RN CONTACTED BOTH DR FLOREZ WELL DR ABBASI AFTER PT HAD MULTIPLE EPISODES OF SUSTAINED TORSADES. AFTER SPEAKING WITH BOTH PROVIDERS AND REVIEWING CURRENT GTT AND LABS, ORDERS WERE GIVEN TO START MAGNESIUM IV, SODIUM PHOSPHATE IV, POTASSIUM IV, RESTART AMIODARONE GTT AFTER GIVING 150MG BOLUS, AND ATTEMPT TO GO DOWN ON SEDATION TOLERATED WHILE SIMULTANEOUSLY TITRATING OFF OF THE LEVOPHED IF MAPS CAN SUSTAIN. ORDERS TO REDRAW LABS HAVE BEEN OBTAINED WELL.
[2025-09-08] MEDS ORDERED: Rocuronium Bromide 10 MG/ML 5ML Injection IV ONE (06:39)
[2025-09-08] MEDS ORDERED: LORazepam 2 MG/ML 1ML Injection IV ONE ×2 (06:39→23:35)
[2025-09-08] MEDS ORDERED: Potassium Phos/Sodium Phos 250 MG PACK PO SCH (07:00)
--- NOTE | 2025-09-08 07:15 | NUR ---
ASSUMED CARE THIS RN ASSUMED CARE OF PATIENT AT 0700 WITH PRECEPTOR NILESH AARON. PATIENT IS INTUBATED AND SEDATED BUT GOETZ SPONTANEOUSLY AND OPENS EYES TO PHYSICAL STIMULI. VENT SETTINGS ARE AC/VC 20/350/5.0/35%, W/ SPO2 >98%. PATIENT'S RESPIRATIONS ARE EVEN AND UNLABORED. PT IS ON LEVO DRIP AT 1MCG/MIN, AMIODARONE 50MG/MIN, FENT 75MCG/HR, PROPOFOL 35 MCG/KG/MIN. HER SYSTOLIC BP IS >80, MAP >60. HR IS 110-120S. MONITOR SHOWS SINUS TACHYCARDIA. ZOLL AT BEDSIDE. SHE HAS OG TUBE AT LOW INTERMITTENT SUCTION, WREN DRAINING CLEAR YELLOW URINE TO GRAVITY. FAMILY AT BEDSIDE. CALL LIGHT IN REACH.
[2025-09-08 09:30] LABS: Chloride, Urine, Random 19.0 mmol/L (55-125); Creatinine, Urine Random 58.6 mg/dL (27.00-270.00); Potassium, Urine, Random 58.0 mmol/L (12.0-75.0); Sodium, Urine, Random 11.0 mmol/L (20-110); Urea Nitrogen, Urine, Random 240.0 mg/dL (350-1000)
[2025-09-08 10:21] LABS: Hematocrit 24.1 % (33.0-51.0); Hemoglobin 8.2 g/dL (11.5-16.0)
[2025-09-08 10:51] LABS: Magnesium, Blood 2.1 mg/dL (1.6-2.4)
[2025-09-08 10:58] LABS: Alanine Aminotransfer (ALT/SGP 51.0 U/L (12-78); Albumin, Blood 2.4 g/dL (3.4-5.0); Albumin/Globulin Ratio 0.6 (0.8-1.8); Anion Gap 12.0 mmol/L (3-11); Aspartate Aminotrans (AST/SGOT 228.0 U/L (12-37); Bilirubin, Total 5.1 mg/dL (0.1-1.0); Blood Urea Nitrogen 4.0 mg/dL (8-24); CO2, Blood 18.0 mmol/L (21-32); Calcium, Blood 8.1 mg/dL (8.5-10.1); Chloride, Blood 112.0 mmol/L (98-108); Creatinine, Blood 0.41 mg/dL (0.40-1.00); Globulin, Blood 4.2 g/dL (2.2-4.0); Glucose, Blood 145.0 mg/dL (70-99); Phosphorus, Blood 4.3 mg/dL (2.5-4.9); Potassium, Blood 3.9 mmol/L (3.5-5.5); Sodium, Blood 138.0 mmol/L (136-145); Total Protein, Blood 6.6 g/dL (6.4-8.2)
--- NOTE | 2025-09-08 14:22 | NUR ---
Patient is alert and restless. Several family members are bedside. They state that they are impressed by the patient's improvement and look forward to more positive change. The visit is brief as they state that no spiritual care is needed at this time. I will continue to remain available.
[2025-09-08 16:51] LABS: Anion Gap 11.0 mmol/L (3-11); Blood Urea Nitrogen 4.0 mg/dL (8-24); CO2, Blood 19.0 mmol/L (21-32); Calcium, Blood 8.0 mg/dL (8.5-10.1); Chloride, Blood 113.0 mmol/L (98-108); Creatinine, Blood 0.38 mg/dL (0.40-1.00); Glucose, Blood 111.0 mg/dL (70-99); Magnesium, Blood 1.9 mg/dL (1.6-2.4); Phosphorus, Blood 3.2 mg/dL (2.5-4.9); Potassium, Blood 3.7 mmol/L (3.5-5.5); Sodium, Blood 139.0 mmol/L (136-145)
--- NOTE | 2025-09-08 18:38 | NUR ---
SHIFT SUMMARY PATIENT HAS BEEN ALERT AND ORIENTED X2-3 THIS SHIFT. SHE IS ABLE TO IDENTIFY FAMILY AND SELF. AT TIMES SHE IS AWARE OF THE YEAR, BUT NOT THE DAY OR MONTH. OTHERWISE PATIENT HAS BEEN TIRED AND NAPPING THROUGH MOST OF SHIFT. SHE IS ON PPN 42ML/HR. CURRENTLY HAS 3 PERIPHERAL IVS THAT DRAW AND FLUSH WELL. SPO2 HAS BEEN >94% ON RA. SYSTOLIC BP >90. MAP >65. HR IN 110-120S WITH SLIGHT IMPROVEMENT TO 100S AFTER METOPROLOL. OTHERWISE PATIENT HAS NOT HAD APPETITE. TAKES MEDS WITH WATER. SHE HAS HAD 4 LOOSE BM AND USES BEDSIDE TOILET WITH 1 NURSE ASSIST. CALL LIGHT IN REACH. BED IN LOWEST POSITION.
--- NOTE | 2025-09-08 21:50 | NUR ---
PT HAS BEEN SOMEWHAT COMBATIVE AND VERY AGITATED THIS SHIFT. SHE IS NOW REFUSING HELP OR CARE AND IS ADAMANT THAT SHE IS GOING TO LEAVE AMA. PATIENT IS A&OX4. I HAD AN EXTENSIVE CONVERSATION WITH HER EXPLAINING THE SEVERITY OF HER SITUATION INVOLVING CPR, DEFIBRILLATION, ARRHTYHMIAS AND EXTUBATED LESS THAN 24 HOURS AGO. HER MOM WAS PRESENT DURING THIS CONVERSATION AND ALSO TRIED TO TALK TO THE PT. SHE INSISTS THAT SHE UNDERSTANDS AND STILL WANTS TO LEAVE. HOSPITALIST WAS CONTACTED TO COME SPEAK TO THE PATIENT.
--- NOTE | 2025-09-08 23:55 | NUR ---
HOSPITALIST THAT WAS ON PREVIOUSLY DID NOT COME SEE THE PATIENT. SHE CONTINUED TO VOICE THAT SHE WANTED TO LEAVE AND DID NOT WANT ANY ADDITIONAL CARE THAN WHAT WAS BEING DONE. SHE WAS AGREEABLE TO TAKING HER PO MEDICATIONS AND CONTINUING THE IV INFUSION. AFTER THE PAIN MEDICATION THAT SHE WAS GIVEN PT DID BECOME MORE DROWSY AND UNSTEADY. PT STATED THAT SHE WANTED THE ADDITIONAL IVS THAT THE GTT WAS NOT RUNNING IN OUT. THEY WERE REMOVED PER HER REQUEST. FAMILY HAS BEEN CONCERNED THAT THE PT DOESN'T REMEMBER HOW SHE GOT HERE AND DOESN'T REMEMBER WHETHER SHE CAME INTO THE HOSPITAL WITH CLOTHES OR HER PHONE. WE HAVE EXPLAINED TO THE PT AND FAMILY THAT THERE WILL BE ASPECTS OF HER CARE THAT SHE WON'T REMEMBER DUE TO THE MEDICATIONS SHE RECEIVED AND HOW CRITICAL HER SITUATION WAS WHEN SHE CAME TO THE HOSPITAL. SHE CONTINUED TO STATE THAT SHE WANTED TO LEAVE BUT WAS OKAY WITH CONTINUING TREATMENT UNTIL THEN. WE SPOKE TO THE HOSPITALIST THAT CAME ON TONIGHT, DR MIKE. HE CAME IN AND SPOKE WITH THE PATIENT AND THE FAMILY EXPRESSING THAT SHE IS STILL IN A CRITICAL STATE. PT WAS AGREEABLE TO GETTING ATIVAN TO HELP HER RELAX AND FEEL MORE COMFORTABLE. SHE STILL INTERMITTENTLY EXPRESSES THAT SHE WANTS TO LEAVE AND DOES NOT WANT FURTHER CARE BUT IS NOT ATTEMPTING TO GET OUT OF BED, REMOVE MONITORING EQUIPMENT OR IVS, OR LEAVE. FAMILY IS AT BEDSIDE.
--- NOTE | 2025-09-09 05:57 | NUR ---
SHIFT SUMMARY PT INCREASINGLY AGITATED T/O THE NIGHT WITH MANY REQUESTS/DEMANDS TO LEAVE AMA, PER PROVIDER AND FAMILY INPUT STATING ABNORMAL MENTATION OF PT, PT DEEMED UNFIT TO MAKE THE DECISION TO LEAVE. PT RECIEVED 1X DOSE 0.5MG ATIVAN AND WAS ABLE TO GET SOME UNINTERRUPTED REST. PT KNOWS SHE IS AT THE HOSPITAL, UNSURE OF HOW AND WHY SHE IS HERE, NOT UNDERSTANDING THE SEVERITY OF HER CONDITION. PT ON RA WITH SPO2 >95 WHEN MONITORED INTERMITTENTLY (PT REFUSED ALL MONITORING EXCEPT CARDIAC), DENIES SOB, HAS PAINFUL INSPIRATION LIKELY DUE TO RECENT EXTUBATION. PT SBP IN THE 100-110, HR IN THE 90-100 NSR WITH OCASSIONAL PVC'S AND SOME RUN OF VENT. BIGEMINY, PT DENIES CHEST PAIN/PRESSURE. PT HAD MULTIPLE EPISODES OF N/V TREATED WITH ZOFRAN. PT AMBULATING TO IN-ROOM TOILET WITH NURSE SBA, PT EXPERIENCING FREQUENT DIARRHEA (BASELINE). FAMILY AT BEDSIDE T/O THE NIGHT. CALL LIGHT WITHIN REACH. NO IMEMDIATE NEEDS/CONCERNS NOTED AT THIS TIME. WILL REPORT TO ONCOMING RN
[2025-09-09 06:07] LABS: Anion Gap 9.0 mmol/L (3-11); Blood Urea Nitrogen 5.0 mg/dL (8-24); CO2, Blood 21.0 mmol/L (21-32); Calcium, Blood 8.2 mg/dL (8.5-10.1); Chloride, Blood 113.0 mmol/L (98-108); Creatinine, Blood 0.33 mg/dL (0.40-1.00); Glucose, Blood 101.0 mg/dL (70-99); Magnesium, Blood 1.9 mg/dL (1.6-2.4); Phosphorus, Blood 2.5 mg/dL (2.5-4.9); Potassium, Blood 3.7 mmol/L (3.5-5.5); Sodium, Blood 139.0 mmol/L (136-145)
[2025-09-09] MEDS ORDERED: Ergocalciferol 50000 Intn'l Units PO SCH (07:40)
--- NOTE | 2025-09-09 08:00 | NUR ---
ASSUMPTION OF CARE RECEIVED REPORT FROM [facility] NURSE. PT IS ALERT AND ORIENTED, PT WAS ABLE TO STATE HER NAME AND , LOCATION, THE PRESIDENT BUT STATED SHE WAS UNABLE TO REMEMBER THE YEAR. THE PATIENT IS ANXIOUS/ANGRY. ASSISTED THE PATIENT TO THE BATHROOM AND WHEN ATTEMPTING TO HELP HER SIT UP SHE STATED "DON'T TOUCH ME AND DON'T HELP ME TO THE BATHROOM." PROVIDED EDU ON IMPORTANCE OF STAFF BEING PRESENT TO ENSURE SAFETY. STEP MOTHER AT BEDSIDE, SHE IS THE ONE WHO PERFORMED CPR AND IS EMOTIONAL AND FEARFUL ABOUT HER DAUGHTER SINCE THE DAUGHTER STATED "I WANT TO LEAVE AND GO HOME." HR IN 60-70S, MAP >65. PT ON RA, NO S/SX OF SOB OR RESPIRATORY DISTRESS. PT REFUSES TO KEEP SPO2 MONITOR ON. PT HAS CHRONIC HX OF GI ISSUES. PT HAS HAD DIARRHEA AND IS CURRENTLY N/V WITH APPROX 250 MLS OF EMESIS. PT AMBULATES TO TOILET WITH NURSE ASSIST. PT HAS WEAK GAIT. PT HAS 1 PIV IN LEFT HAND. WHEN ASSISTING PT AND TOUCHED HER HAND TO ASSESS PIV, PT STATED "THAT WAS SO ROUGH AND HURT." STEP MOM AT BEDSIDE.
[2025-09-09 08:44] VITALS: BP 98/75
[2025-09-09] MEDS ORDERED: Folic Acid 1 MG TAB PO SCH (09:00)
[2025-09-09] MEDS ORDERED: Metoclopramide HCl 5MG / ML 2ML Vial IV PRN (09:45)
[2025-09-09] MEDS ORDERED: LORazepam 2 MG/ML 1ML Injection IV PRN (10:10)
[2025-09-09 11:15] VITALS: BP 100/54
[2025-09-09 12:56] LABS: Anion Gap 8.0 mmol/L (3-11); Blood Urea Nitrogen 5.0 mg/dL (8-24); CO2, Blood 22.0 mmol/L (21-32); Calcium, Blood 8.1 mg/dL (8.5-10.1); Chloride, Blood 112.0 mmol/L (98-108); Creatinine, Blood 0.38 mg/dL (0.40-1.00); Glucose, Blood 89.0 mg/dL (70-99); Magnesium, Blood 1.8 mg/dL (1.6-2.4); Phosphorus, Blood 2.3 mg/dL (2.5-4.9); Potassium, Blood 3.4 mmol/L (3.5-5.5); Sodium, Blood 139.0 mmol/L (136-145)
[2025-09-09 13:00] LABS: Hematocrit 21.9 % (33.0-51.0); Hemoglobin 7.3 g/dL (11.5-16.0)
[2025-09-09] MEDS ORDERED: Potassium Chl 20MEQ/Water100ML 100 ML IV STA (15:47)
[2025-09-09] MEDS ORDERED: Mag Sulfate 1 GM/D5% 100ML 100 ML IV STA (15:47)
[2025-09-09] MEDS ORDERED: Potassium Phosphate Dibasic 10 MM in Dextrose 5% 250 ML IV STA (15:48)
--- NOTE | 2025-09-09 18:33 | NUR ---
PT CAME IN FROM ICU VIA WHEELCHAIR, AWAKE. SHE WAS ABLE TO WALK FROM THE WHEELCHAIR TO THE BED. PT IS ORIENTEDX3, UNABLE TO CONFIRM DATE. NOTED WITH POWERGLIDE ON RIGHT UPPER ARM AND PIV ON LEFT WRIST. PT ASKED TO REMOVED THE PIV ON LEFT WRIST. PT REORIENTED TO THE DATE AND DISCUSSED WITH THE CALL LIGHT AND HOURLY ROUNDINGS. CALLED DR. CHAPMAN IF PATIENT CAN HAVE DIET, HE AGREED AND DIET UPDATED TO ADVANCE DIET TOLERATED. DR. SALDIVAR MADE ROUNDS AND WILL CHECK AGAIN TOMORROW. PT VERBALIZED SHE WANTED TO GO HOME AND WAS LOOKING FOR HER OTHER MOM. PT STARTED TO GET IRRITATED NEAR THE END OF SHIFT. PT'S MOM EXPLAINED TO HER WHY SHE CANT GO HOME YET. WILL ENDORSE TO NEXT NURSE ON DUTY.
[2025-09-09 19:00] LABS: Anion Gap 9.0 mmol/L (3-11); Blood Urea Nitrogen 5.0 mg/dL (8-24); CO2, Blood 22.0 mmol/L (21-32); Calcium, Blood 8.0 mg/dL (8.5-10.1); Chloride, Blood 111.0 mmol/L (98-108); Creatinine, Blood 0.37 mg/dL (0.40-1.00); Glucose, Blood 105.0 mg/dL (70-99); Magnesium, Blood 2.1 mg/dL (1.6-2.4); Phosphorus, Blood 2.4 mg/dL (2.5-4.9); Potassium, Blood 3.7 mmol/L (3.5-5.5); Sodium, Blood 138.0 mmol/L (136-145)
[2025-09-09 20:30] VITALS: BP 100/65
[2025-09-10] VITALS (9 sets, daily range): BP systolic 101–138; BP diastolic 59–97
[2025-09-10 00:45] LABS: C-REACTIVE PROTEIN, EXT RANGE 6.77 mg/dL (0.000-0.300); Magnesium, Blood 2.0 mg/dL (1.6-2.4)
[2025-09-10 00:46] LABS: Anion Gap 7.0 mmol/L (3-11); Blood Urea Nitrogen 5.0 mg/dL (8-24); CO2, Blood 22.0 mmol/L (21-32); Calcium, Blood 8.1 mg/dL (8.5-10.1); Chloride, Blood 111.0 mmol/L (98-108); Creatinine, Blood 0.34 mg/dL (0.40-1.00); Glucose, Blood 109.0 mg/dL (70-99); Phosphorus, Blood 2.9 mg/dL (2.5-4.9); Potassium, Blood 4.0 mmol/L (3.5-5.5); Sodium, Blood 136.0 mmol/L (136-145)
[2025-09-10] MEDS ORDERED: GABA300 PO (02:17)
[2025-09-10] MEDS ORDERED: Percocet 5-3251 EACH PO (02:17)
[2025-09-10] MEDS ORDERED: FOLI1 PO (02:18)
[2025-09-10] MEDS ORDERED: OMEP20ER PO (02:19)
[2025-09-10] MEDS ORDERED: FentaNYL Citrate 50 MCG/ML 2 ML Injection IV PRN (03:30)
[2025-09-10 04:34] LABS: BASOPHILS ABSOLUTE AUTO 0.05 K/mm3 (0.00-0.23); BASOPHILS PERCENT AUTO 1 % (0-2); EOSINOPHILS ABSOLUTE AUTO 0.09 K/mm3 (0.00-0.68); EOSINOPHILS PERCENT AUTO 1 % (0-6); Hematocrit 20.7 % (33.0-51.0); Hemoglobin 6.9 g/dL (11.5-16.0); IMMATURE GRAN ABSOLUTE AUTO 0.05 K/mm3 (0.00-0.10); IMMATURE GRAN PERCENT AUTO 1 % (0-1); LYMPHOCYTES ABSOLUTE AUTO 1.93 K/mm3 (0.84-5.20); LYMPHOCYTES PERCENT AUTO 20 % (21-46); MONOCYTES ABSOLUTE AUTO 0.82 K/mm3 (0.16-1.47); MONOCYTES PERCENT AUTO 9 % (4-13); Mean Corpuscular HGB Conc 33.3 g/dL (31.5-36.5); Mean Corpuscular Volume 97 fL (80-100); NEUTROPHILS ABSOLUTE AUTO 6.61 K/mm3 (1.96-9.15); NEUTROPHILS PERCENT AUTO 69 % (41-73); NRBC ABSOLUTE 0.00 K/mm3 (0.00-0.02); NRBC Auto 0.0 /100 WBC (0.0-0.2); Platelet Count 165 K/mm3 (150-400); RDW Coefficient Variation 14.9 % (11.7-14.2); RDW Standard Deviation 53.1 fL (35.1-46.3)
--- NOTE | 2025-09-10 04:42 | NUR ---
NOC SHIFT SUMMARY JERMAIN IS ORIENTED X2-4 OVERNIGHT, MENTATION WAXING AND WANING. ANXIOUS AND POOR COMPREHENSION/SHORT TERM MEMORY. REPEATS QUESTIONS AND WANTING TO LEAVE. UNSURE OF WHY SHE IS HERE AND WHAT HAPPENED. ABLE TO RESPOND TO REDIRECTION AT TIMES. WITH SUBSTERNAL/L CLAVICLE PAIN RELIEVED BRIEFLY BY PRNS - SPOKE WITH DR. NEAL AND PRNS ADDED FOR PAIN. SEE EMAR FOR DETAILS. SOME EPISODES OF AGITATION AND TEARFULNESS. PRNS GIVEN. PANIC ATTACK X1 AND PRN ATIVAN GIVEN WITH LITTLE RELIEF. TRIED TO SUPPORT HOME SLEEP HYGIENE - PT REPORTS SHE SLEEPS WITH TV, LIGHT ON. DECLINED FAN. FAMILY - MOM AND STEP DAD AT BEDSIDE MAJORITY OF SHIFT BUT REPORT FEELING OVERWHELMED AND TIRED AND LEFT AROUND 0400. PT UNSTEADY ON FEET, REQUIRING 1 PERSON HANDS ON ASSIST AND OFTEN REFUSES TO ALLOW STAFF TO ASSIST. REFUSING GRIPPY SOCKS.
[2025-09-10 04:58] LABS: Alanine Aminotransfer (ALT/SGP 67.0 U/L (12-78); Albumin, Blood 2.2 g/dL (3.4-5.0); Albumin/Globulin Ratio 0.6 (0.8-1.8); Anion Gap 10.0 mmol/L (3-11); Aspartate Aminotrans (AST/SGOT 359.0 U/L (12-37); Bilirubin, Total 6.6 mg/dL (0.1-1.0); Blood Urea Nitrogen 5.0 mg/dL (8-24); CO2, Blood 22.0 mmol/L (21-32); Calcium, Blood 8.1 mg/dL (8.5-10.1); Chloride, Blood 110.0 mmol/L (98-108); Creatinine, Blood 0.34 mg/dL (0.40-1.00); Globulin, Blood 3.8 g/dL (2.2-4.0); Glucose, Blood 100.0 mg/dL (70-99); Magnesium, Blood 1.9 mg/dL (1.6-2.4); Phosphorus, Blood 2.4 mg/dL (2.5-4.9); Potassium, Blood 3.6 mmol/L (3.5-5.5); Sodium, Blood 138.0 mmol/L (136-145); Total Protein, Blood 6.0 g/dL (6.4-8.2)
--- NOTE | 2025-09-10 06:21 | NUR ---
NOTIFIED DR. NEAL OF INCREASED AGITATION/ANXIETY AND HALLUCINATIONS WITH CONCERN FOR PARADOXICAL REACTION TO MEDICATIONS VS AMMONIA VS LACK OF SLEEP THIS AM. ORDER FOR AMMONIA LEVEL, ZYPREXA X1 AND MOVED TO PCU 08 FOR CLOSER MONITORING WITH 1:1 SITTER. ALSO NOTIFIED OF HGB 6.9. 1U PRBC ORDERED. NO CONSENT IN CHART, TYPE AND SCREEN NEEDED. NOTIFIED DR. NEAL OF THIS AND WILL UPDATE PRIMARY DAYSHIFT RN
--- NOTE | 2025-09-10 07:47 | NUR ---
0747- UPDATED JAE, MOM VIA PHONE OF PT IN [facility], CONTINUED TO ESCLATE AFTER MEDICATION ADMINISTRATION. UNSTEADY ON FEET AND ATTEMPTING TO ELOPE IN OTHER PATIENTS ROOMS. ALSO NOTIFIED PT WILL NEED BLOOD TODAY AND AGREEABLE TO THAT. UPDATED MARY GOSS RN
[2025-09-10] MEDS ORDERED: Potassium Phosphate Dibasic 10 MM in Dextrose 5% 250 ML IV STA (07:51)
[2025-09-10 08:39] LABS: Anion Gap 9.0 mmol/L (3-11); Blood Urea Nitrogen 6.0 mg/dL (8-24); CO2, Blood 21.0 mmol/L (21-32); Calcium, Blood 8.0 mg/dL (8.5-10.1); Chloride, Blood 110.0 mmol/L (98-108); Creatinine, Blood 0.31 mg/dL (0.40-1.00); Glucose, Blood 151.0 mg/dL (70-99); Magnesium, Blood 1.7 mg/dL (1.6-2.4); Phosphorus, Blood 2.9 mg/dL (2.5-4.9); Potassium, Blood 3.8 mmol/L (3.5-5.5); Sodium, Blood 136.0 mmol/L (136-145)
[2025-09-10] MEDS ORDERED: Mag Sulfate 1 GM/D5% 100ML 100 ML IV STA (11:24)
[2025-09-10] MEDS ORDERED: DiphenhydrAMINE HCl 50 MG/ML 1ML Vial IV ONE (11:45)
[2025-09-10] MEDS ORDERED: Haloperidol Lactate Inj. 5 MG/ML Injection IV ONE (11:50)
[2025-09-10] MEDS ORDERED: Lactulose 200 GM/300 ML Enema 300ML BTL PR SCH (14:00)
[2025-09-10] MEDS ORDERED: DiphenhydrAMINE HCl 50 MG/ML 1ML Vial IV PRN (14:45)
[2025-09-10] MEDS ORDERED: Haloperidol Lactate Inj. 5 MG/ML Injection IM PRN (14:45)
[2025-09-10 15:26] LABS: BASOPHILS ABSOLUTE AUTO 0.04 K/mm3 (0.00-0.23); BASOPHILS PERCENT AUTO 0 % (0-2); EOSINOPHILS ABSOLUTE AUTO 0.05 K/mm3 (0.00-0.68); EOSINOPHILS PERCENT AUTO 1 % (0-6); Hematocrit 23.9 % (33.0-51.0); Hemoglobin 8.1 g/dL (11.5-16.0); IMMATURE GRAN ABSOLUTE AUTO 0.10 K/mm3 (0.00-0.10); IMMATURE GRAN PERCENT AUTO 1 % (0-1); LYMPHOCYTES ABSOLUTE AUTO 1.82 K/mm3 (0.84-5.20); LYMPHOCYTES PERCENT AUTO 17 % (21-46); MONOCYTES ABSOLUTE AUTO 1.31 K/mm3 (0.16-1.47); MONOCYTES PERCENT AUTO 12 % (4-13); Mean Corpuscular HGB Conc 33.9 g/dL (31.5-36.5); Mean Corpuscular Volume 91 fL (80-100); NEUTROPHILS ABSOLUTE AUTO 7.40 K/mm3 (1.96-9.15); NEUTROPHILS PERCENT AUTO 69 % (41-73); NRBC ABSOLUTE 0.00 K/mm3 (0.00-0.02); NRBC Auto 0.0 /100 WBC (0.0-0.2); Platelet Count 183 K/mm3 (150-400); RDW Coefficient Variation 16.6 % (11.7-14.2); RDW Standard Deviation 54.7 fL (35.1-46.3)
[2025-09-10] MEDS ORDERED: Metoprolol Tartrate 1 MG/ML 5 ML VIAL IV SCH (16:00)
[2025-09-10 16:05] LABS: Prothrombin Time Results 15.3 Sec (9.7-11.5)
[2025-09-10 16:08] LABS: Alanine Aminotransfer (ALT/SGP 70.0 U/L (12-78); Albumin, Blood 2.3 g/dL (3.4-5.0); Albumin/Globulin Ratio 0.6 (0.8-1.8); Anion Gap 8.0 mmol/L (3-11); Aspartate Aminotrans (AST/SGOT 337.0 U/L (12-37); Bilirubin, Total 6.9 mg/dL (0.1-1.0); Blood Urea Nitrogen 5.0 mg/dL (8-24); CO2, Blood 22.0 mmol/L (21-32); Calcium, Blood 7.9 mg/dL (8.5-10.1); Chloride, Blood 110.0 mmol/L (98-108); Creatinine, Blood 0.3 mg/dL (0.40-1.00); Globulin, Blood 3.8 g/dL (2.2-4.0); Glucose, Blood 136.0 mg/dL (70-99); Phosphorus, Blood 2.4 mg/dL (2.5-4.9); Potassium, Blood 3.7 mmol/L (3.5-5.5); Sodium, Blood 136.0 mmol/L (136-145); Total Protein, Blood 6.1 g/dL (6.4-8.2)
[2025-09-10] MEDS ORDERED: Potassium Phosphate Dibasic 10 MM in Dextrose 5% 250 ML IV ONE (16:20)
--- NOTE | 2025-09-10 18:16 | NUR ---
SHIFT SUMMARY: PT HAS BEEN UNCOOPERATIVE SINCE THE START OF THE SHIFT. SHE WANTED TO STEP OUT OF HER BED AND WAS AGRESSIVE TO THE STAFFS. SITTER WAS IN THE ROOM. THERE WERE ALSO EPISODES OF TRYING TO PULL OUT HER POWERGLIDE ON HER RIGHT ARM. DOCTOR WAS CALLED AND PT WAS PLACED ON RESTRAINTS. POSI VEST WAS APPLIED AND PT WAS RESTRAINED TO THE BED. PT WAS STILL SHOUTING, YELLING, AND KICKING STAFF WHEN AGITATED, MEDICATIONS WERE GIVEN PER EMAR, BUT PT ONLY CALMED DOWN SHORTLY. PT WAS NOT ABLE TO PEE 5 HOURS AFTER THE START OF SHIFT, BLADDER SCAN WAS PERFORMED, WREN CATHETER WAS THEN PLACED. PARENTS CAME IN AND WAS UPDATED ABOUT STATUS. WILL REPORT TO NEXT NURSE ON DUTY.
[2025-09-10 22:14] LABS: Campylobacter Sp Not Detected (NOT DETECT); E. Coli O157 Not Detected (NOT DETECT); Enteroaggregative E. coli-EAEC Not Detected (NOT DETECT); Enteropathogenic E. coli-EPEC Not Detected (NOT DETECT); Enterotoxigenic E. coli-ETEC Not Detected (NOT DETECT); Salmonella Sp Not Detected (NOT DETECT); Shiga Toxin-prod E. coli-STEC Not Detected (NOT DETECT); Shigella/Enteroin E. coli-EIEC Not Detected (NOT DETECT); Vibrio Sp Not Detected (NOT DETECT)
[2025-09-11 00:05] VITALS: BP 125/69
[2025-09-11 04:00] VITALS: BP 123/70
[2025-09-11 05:30] LABS: BASOPHILS ABSOLUTE AUTO 0.04 K/mm3 (0.00-0.23); BASOPHILS PERCENT AUTO 0 % (0-2); EOSINOPHILS ABSOLUTE AUTO 0.09 K/mm3 (0.00-0.68); EOSINOPHILS PERCENT AUTO 1 % (0-6); Hematocrit 23.6 % (33.0-51.0); Hemoglobin 8.1 g/dL (11.5-16.0); IMMATURE GRAN ABSOLUTE AUTO 0.09 K/mm3 (0.00-0.10); IMMATURE GRAN PERCENT AUTO 1 % (0-1); LYMPHOCYTES ABSOLUTE AUTO 2.62 K/mm3 (0.84-5.20); LYMPHOCYTES PERCENT AUTO 20 % (21-46); MONOCYTES ABSOLUTE AUTO 1.43 K/mm3 (0.16-1.47); MONOCYTES PERCENT AUTO 11 % (4-13); Mean Corpuscular HGB Conc 34.3 g/dL (31.5-36.5); Mean Corpuscular Volume 91 fL (80-100); NEUTROPHILS ABSOLUTE AUTO 8.80 K/mm3 (1.96-9.15); NEUTROPHILS PERCENT AUTO 67 % (41-73); NRBC ABSOLUTE 0.00 K/mm3 (0.00-0.02); NRBC Auto 0.0 /100 WBC (0.0-0.2); Platelet Count 226 K/mm3 (150-400); RDW Coefficient Variation 17.6 % (11.7-14.2); RDW Standard Deviation 57.0 fL (35.1-46.3)
[2025-09-11 05:57] LABS: Alanine Aminotransfer (ALT/SGP 66.0 U/L (12-78); Albumin, Blood 2.2 g/dL (3.4-5.0); Albumin/Globulin Ratio 0.6 (0.8-1.8); Anion Gap 11.0 mmol/L (3-11); Aspartate Aminotrans (AST/SGOT 268.0 U/L (12-37); Bilirubin, Total 6.6 mg/dL (0.1-1.0); Blood Urea Nitrogen 5.0 mg/dL (8-24); CO2, Blood 20.0 mmol/L (21-32); Calcium, Blood 7.9 mg/dL (8.5-10.1); Chloride, Blood 111.0 mmol/L (98-108); Creatinine, Blood 0.3 mg/dL (0.40-1.00); Globulin, Blood 3.8 g/dL (2.2-4.0); Glucose, Blood 103.0 mg/dL (70-99); Magnesium, Blood 1.9 mg/dL (1.6-2.4); Phosphorus, Blood 3.1 mg/dL (2.5-4.9); Potassium, Blood 3.8 mmol/L (3.5-5.5); Sodium, Blood 138.0 mmol/L (136-145); Total Protein, Blood 6.0 g/dL (6.4-8.2)
--- NOTE | 2025-09-11 06:20 | NUR ---
SHIFT SUMMARY PATIENT A/O X 2, AGITATED AND ANXIOUS THROUGHOUT SHIFT. PATIENT IS COMBATIVE AND UNCOOPERATIVE WITH CARE. PATIENT ATTEMPTS TO PULL AT LINES AND TUBES, RANJIT VEST IN PLACE. SINUS TACH 120s, BP STABLE. SATS MAINTAINED >95% ON ROOM AIR. WREN CATH PATENT AND DRAINING TO GRAVITY. RECTAL TUBE IN PLACE. CLINIMIX INFUSING. TEMPERATURE WAS ELEVATED. PLACED CALL TO MD KESSLER WHO GAVE VERBAL ORDERS FOR ASPIRIN KS ONE TIME NOW. PATIENTS TEMPERATURE REDUCED WITHOUT MEDICATIONS, DID NOT ADMINISTER. PATIENT RESTING IN ROOM. BED LOCKED IN LOWEST POSITION, CALL LIGHT WITHIN REACH. SITTER PRESENT.
[2025-09-11] MEDS ORDERED: Pantoprazole Sodium 40 MG Injection IV SCH (09:00)
[2025-09-11] MEDS ORDERED: Potassium Chl 20MEQ/Water100ML 100 ML IV SCH (09:00)
[2025-09-11] MEDS ORDERED: Lactulose 200 GM/300 ML Enema 300ML BTL PR SCH (09:00)
[2025-09-11 09:45] LABS: Albumin, Blood 2.2 g/dL (3.4-5.0); Anion Gap 13 mmol/L (3-11); Blood Urea Nitrogen 5 mg/dL (8-24); CO2, Blood 19 mmol/L (21-32); Calcium, Blood 7.8 mg/dL (8.5-10.1); Chloride, Blood 110 mmol/L (98-108); Creatinine, Blood 0.34 mg/dL (0.40-1.00); Glucose, Blood 104 mg/dL (70-99); Phosphorus, Blood 3.3 mg/dL (2.5-4.9); Potassium, Blood 3.8 mmol/L (3.5-5.5); Sodium, Blood 138 mmol/L (136-145)
[2025-09-11] MEDS ORDERED: Fat Emulsion 20 % IV 250 ML IV SCH (11:00)
[2025-09-11 11:43] VITALS: BP 129/89
--- NOTE | 2025-09-11 11:59 | NUR ---
PT MOM EXPRESSED SOME CONCERNS ABOUT THE POSSIBILTY OF PT RETURNING TO ICU. MOTHER STATED THAT THE FAMILY HAD SOME PROBLEMS WITH STAFF OFFERING PT AMA PAPERS WHEN THE PT WAS NOT IN A STATE OF MIND TO MAKE THOSE KIND OF DECISIONS. PT MOM REPORTED THAT THE PT HAD BEEN "DIFFICULT" AND THAT SHE FELT STAFF WAS GOING TOP ALLOW PT TO LEAVE JUST BECAUSE THE PT WAS DIFFICULT. PT MOM STATED THAT SHE WOULD NOT ALLOW PT TO SIGN AMA FORM. MOM ALSO STATED THAT SHE FELT THOUGH THE STAFF WAS TRYING "GO AROUND" MOM TO HAVE THE PT SIGN THE AMA FORM BY SAYING THAT THE PT IS ABLE TO ANSWER ALL THE ORIENTATION QUESTIONS APPROPIATELY AND THAT ALLOWS THE PT TO MAKE HER DECISIONS. MOM REASSURED THAT PT WAS NOT IN A STATE TO LEAVE THE HOSPITAL AND ICU CLINICAL COORDINATOR WOULD BE NOTIFIED. CLINICAL COORDINATOR OF ICU TO PT ROOM FOR DISCUSSION WITH FAMILY. NURSE NOTIFY ORDER PLACED TO ALERT STAFF TO CONTACT MD AND PT MOM IF PT IS ATTEMPTING TO LEAVE AMA AGAIN.
[2025-09-11] MEDS ORDERED: Albumin (Human) 25gm/100ml 100 ML IV SCH (13:15)
[2025-09-11 14:57] LABS: VITAMIN A (RETINOL) <0.06 mg/L (0.30-1.20); VITAMIN A (RETINYL PALMITATE) <0.02 mg/L (0.00-0.10)
[2025-09-11] MEDS ORDERED: Mag Sulfate 1 GM/D5% 100ML 100 ML IV STA (16:49)
[2025-09-11 16:50] VITALS: BP 132/89
--- NOTE | 2025-09-11 18:09 | NUR ---
END OF SHIFT SUMMARY PT IS A/O X1-2, PT WILL OCCANISONALLY SPEAK CLEAR SENTENCES AND THEN BECOME CONFUSED AND WILL HALLUINATE. PT IS ABLE TO FOLLOW SOME COMMANDS. PT IS AFEBRILE. CONTINUOUS CARDIAC MONITORING IN PLACE SHOWING ST WITH HR IN THE 110'S-120'S, MAP >65. PT IS ON RA WITH SP02 >92%. RECTAL TUBE HAS BEEN REMOVED AND WILL USE BSC WITH 2 PERSON ASSISTANCE. PT IS SLOWLY TOLERATING PO INTAKE WELL. WREN IS IN PLACE AND DRAININIG TO GRAVITY. POWERGLIDE IS IN PLACE ON RUE AND PIV IS IN PLACE TO LFA. BED ALARM IN PLACE AND IN LOWEST POSITION, CALL LIGHT IN REACH. WILL REPORT TO ONCOMING SHIFT.
[2025-09-11 19:32] VITALS: BP 130/87
[2025-09-11 23:47] VITALS: BP 124/76
[2025-09-12] MEDS ORDERED: LORazepam 2 MG/ML 1ML Injection IV ONE (00:35)
[2025-09-12] MEDS ORDERED: Ziprasidone Mesylate 20 MG / Vial IM ONE (00:50)
[2025-09-12 01:11] VITALS: BP 125/91
--- NOTE | 2025-09-12 02:20 | NUR ---
ASSSUMED CARE OF PT AT 1900. PT ALERT TO SELF AND PLACE ONLY. PT HALLUCINATING BUT REDIRECTABLE. SOFT RESTRAINTS REMAINED IN PLACE ON HANK UE. FAMILY REPORTED THAT THE DAYSHIFT PROVIDER PLANNED TO ORDER SEROQUEL THIS EVENING TO HELP WITH SLEEP. MD WAS CONTACTED AND SEROQUEL 25MG PO NIGHTLY WAS ORDERED; HALDOL WAS DISCONTINUED. PT TOOK MEDICATIONS WITHOUT AN ISSUE AND WAS COMFORTABLE AND PLEASANT. AT 2300, PT BECAME RESTLESS AND AGITATED. ATIVAN WAS ADMINISTERED PER MAR AND PT BECAME CALM AND REDIRECTBLE FOR A SHORT TIME. AT 0015, PT AGAIN BECAME AGITATED, THRASHING IN BED AND YELLING FOR HELP. PT WAS PLACED IN 4 POINT RESTRAINTS. MD CONTACTED AND ORDERS RECIEVED FOR FOUR POINT RESTRAINTS, AN ADDITIONAL DOSE OF ATIVAN, AND 10MG IM GEODON IF ATIVAN WAS INEFFECTIVE. PATIENT REQUIRED BOTH MEDICATIONS. AT 0200, PT CONITNUED TO THRASH AND YELL DESPITE INTERVENTIONS. MD CONTACTED AGAIN AND ORDERS RECIEVED FOR TRANSFER TO ICU AND INITIATION OF PRECEDEX.
[2025-09-12 04:17] LABS: BASOPHILS ABSOLUTE AUTO 0.04 K/mm3 (0.00-0.23); BASOPHILS PERCENT AUTO 0 % (0-2); EOSINOPHILS ABSOLUTE AUTO 0.08 K/mm3 (0.00-0.68); EOSINOPHILS PERCENT AUTO 1 % (0-6); Hematocrit 21.8 % (33.0-51.0); Hemoglobin 7.3 g/dL (11.5-16.0); IMMATURE GRAN ABSOLUTE AUTO 0.08 K/mm3 (0.00-0.10); IMMATURE GRAN PERCENT AUTO 1 % (0-1); LYMPHOCYTES ABSOLUTE AUTO 1.25 K/mm3 (0.84-5.20); LYMPHOCYTES PERCENT AUTO 12 % (21-46); MONOCYTES ABSOLUTE AUTO 1.04 K/mm3 (0.16-1.47); MONOCYTES PERCENT AUTO 10 % (4-13); Mean Corpuscular HGB Conc 33.5 g/dL (31.5-36.5); Mean Corpuscular Volume 91 fL (80-100); NEUTROPHILS ABSOLUTE AUTO 8.06 K/mm3 (1.96-9.15); NEUTROPHILS PERCENT AUTO 76 % (41-73); NRBC ABSOLUTE 0.00 K/mm3 (0.00-0.02); NRBC Auto 0.0 /100 WBC (0.0-0.2); Platelet Count 182 K/mm3 (150-400); RDW Coefficient Variation 18.0 % (11.7-14.2); RDW Standard Deviation 57.2 fL (35.1-46.3)
[2025-09-12 04:42] LABS: Alanine Aminotransfer (ALT/SGP 56.0 U/L (12-78); Albumin, Blood 2.6 g/dL (3.4-5.0); Albumin/Globulin Ratio 0.8 (0.8-1.8); Anion Gap 11.0 mmol/L (3-11); Aspartate Aminotrans (AST/SGOT 179.0 U/L (12-37); Bilirubin, Total 5.3 mg/dL (0.1-1.0); Blood Urea Nitrogen 6.0 mg/dL (8-24); CO2, Blood 19.0 mmol/L (21-32); Calcium, Blood 8.1 mg/dL (8.5-10.1); Chloride, Blood 113.0 mmol/L (98-108); Creatinine, Blood 0.34 mg/dL (0.40-1.00); Globulin, Blood 3.4 g/dL (2.2-4.0); Glucose, Blood 111.0 mg/dL (70-99); Magnesium, Blood 2.0 mg/dL (1.6-2.4); Phosphorus, Blood 3.1 mg/dL (2.5-4.9); Potassium, Blood 3.4 mmol/L (3.5-5.5); Sodium, Blood 140.0 mmol/L (136-145); Total Protein, Blood 6.0 g/dL (6.4-8.2)
[2025-09-12 06:43] LABS: VITAMIN B2 3 nmol/L (5-50)
[2025-09-12 07:26] VITALS: BP 120/77
[2025-09-12 09:50] LABS: ALPHA-1-ANTITRYPSIN 209 mg/dL (90-200)
[2025-09-12 10:01] LABS: CERULOPLASMIN 15 mg/dL (16-45)
[2025-09-12 10:55] LABS: HEPATITIS B SURFACE ANTIBODY 3.14 IU/L
[2025-09-12 12:18] LABS: Prothrombin Time Results 15.2 Sec (9.7-11.5)
[2025-09-12 13:09] VITALS: BP 123/80
--- NOTE | 2025-09-12 13:39 | NUR ---
PALLIATIVE CARE CONSULT: SPOKE TO CONTROL VALVE MECHANIC RE- SYMPTOMA MANAGEMENT. PT REPORTED TO HAVE DELIRIUM, AGITATION AND INSOMNIA REQUIRING PSYCHOTROPIC MEDICATIONS. REVIEWED UP TO DATE RECOMMENDATIONS REGARDING DELIRIUM, ALCOHOLOL WITHDRAWAL VS WARNICKE ENCEPHALOPATHY AND ANOXIC BRAIN INJURY CAUSING DELIRIUM. DATA SUGGESTED FIRST LINE TREATMENT IS NON MEDICATION INTERVENTIONS OF KEEPING PT AWAKE DURING DAY MUCH POSSIBLE, KEEPING LIGHTS ON. INTERACTING WITH PT. AT NIGHT, DECREASE SLEEP INTERRUPTIONS, MINIMIZE NOISE, KEEP LIGHTS OUT ETC. FIRST LINE MEDICATION TREATMENT IS MELATONIN. ALSO SUGGESTED REMEALTON. CALLED PHARMACY AND RAMELTEON IS NON FORMULARY AND IS NOT STALKED. DISCUSSED WITH CONTROL VALVE MECHANIC. PT HAS NOT BEEN GIVEN MELATONIN THIS VISIT. RN REQUESTED ORDERS FOR MELATONIN AND IS NOW ON DEC.
[2025-09-12] MEDS ORDERED: Potassium Chl 20MEQ/Water100ML 100 ML IV SCH (14:00)
[2025-09-12 16:05] VITALS: BP 143/88
--- NOTE | 2025-09-12 17:14 | NUR ---
END OF SHIFT SUMMARY PT IS A/O X1-2, IS ABLE TO RECOGNIZE FAMILY BUT CAN'T ANSWER OTHER ORIENTING QUESTIONS. PT IS STILL HALLUCINATING, CONFUSED, AND EASILY AGITATED. PT OUT OF RESTRAINTS SINCE 1120, ORDER IS D/C. SITTER IS IN ROOM WITH PT. PT REPORTS HAVING PAIN AT LEFT COLLAR BONE AND RIBS, MEDICATED PER EMAR. CONTINUOUS CARDIAC MONITORING IN PLACE SHOWING ST WITH HR IN THE 110'S-120'S, MAP >65. PT IS ON RA WITH SP02 >92%. PT IS HAVING MULITPLE BROWN LIQUID BMS AND IS 2 PERSON ASSIST TO THE BSC. WREN IS PATENT AND DRAINING TO GRAVITY. POWERGLIDE IS IN PLACE TO RUE AND PIV IS IN PLACE TO LFA. FAMILY IS VERY INVOLVED AND AT BEDSIDE. BED IN LOWEST POSITION, CALL LIGHT IN REACH, WILL REPORT TO ONCOMING SHIFT.
[2025-09-12 19:15] LABS: FACTIN SMOOTH MUSCLE,IGG ELISA 6 Units (0-19); MITOCHONDRIAL (M2) AB,IGG 8.8 Units (0.0-24.9)
[2025-09-12 20:13] LABS: ANTI-NUCLEAR AB ANA,IGG ELISA None Detected (None Detected)
[2025-09-12 20:20] VITALS: BP 106/73
[2025-09-12 23:27] VITALS: BP 105/69
[2025-09-13] VITALS (10 sets, daily range): BP systolic 90–125; BP diastolic 42–77
[2025-09-13 04:42] LABS: BASOPHILS ABSOLUTE AUTO 0.03 K/mm3 (0.00-0.23); BASOPHILS PERCENT AUTO 0 % (0-2); EOSINOPHILS ABSOLUTE AUTO 0.11 K/mm3 (0.00-0.68); EOSINOPHILS PERCENT AUTO 2 % (0-6); Hematocrit 19.8 % (33.0-51.0); Hemoglobin 6.7 g/dL (11.5-16.0); IMMATURE GRAN ABSOLUTE AUTO 0.03 K/mm3 (0.00-0.10); IMMATURE GRAN PERCENT AUTO 0 % (0-1); LYMPHOCYTES ABSOLUTE AUTO 1.49 K/mm3 (0.84-5.20); LYMPHOCYTES PERCENT AUTO 21 % (21-46); MONOCYTES ABSOLUTE AUTO 0.78 K/mm3 (0.16-1.47); MONOCYTES PERCENT AUTO 11 % (4-13); Mean Corpuscular HGB Conc 33.8 g/dL (31.5-36.5); Mean Corpuscular Volume 94 fL (80-100); NEUTROPHILS ABSOLUTE AUTO 4.52 K/mm3 (1.96-9.15); NEUTROPHILS PERCENT AUTO 65 % (41-73); NRBC ABSOLUTE 0.00 K/mm3 (0.00-0.02); NRBC Auto 0.0 /100 WBC (0.0-0.2); Platelet Count 156 K/mm3 (150-400); RDW Coefficient Variation 18.4 % (11.7-14.2); RDW Standard Deviation 58.1 fL (35.1-46.3)
[2025-09-13 04:59] LABS: Alanine Aminotransfer (ALT/SGP 57.0 U/L (12-78); Albumin, Blood 2.7 g/dL (3.4-5.0); Albumin/Globulin Ratio 0.8 (0.8-1.8); Anion Gap 10.0 mmol/L (3-11); Aspartate Aminotrans (AST/SGOT 184.0 U/L (12-37); Bilirubin, Total 4.0 mg/dL (0.1-1.0); Blood Urea Nitrogen 12.0 mg/dL (8-24); CO2, Blood 20.0 mmol/L (21-32); Calcium, Blood 7.9 mg/dL (8.5-10.1); Chloride, Blood 113.0 mmol/L (98-108); Creatinine, Blood 0.39 mg/dL (0.40-1.00); Globulin, Blood 3.2 g/dL (2.2-4.0); Glucose, Blood 98.0 mg/dL (70-99); Magnesium, Blood 1.9 mg/dL (1.6-2.4); Phosphorus, Blood 3.7 mg/dL (2.5-4.9); Potassium, Blood 4.1 mmol/L (3.5-5.5); Sodium, Blood 139.0 mmol/L (136-145); Total Protein, Blood 5.9 g/dL (6.4-8.2)
[2025-09-13 06:17] LABS: Prothrombin Time Results 15.8 Sec (9.7-11.5)
[2025-09-13] MEDS ORDERED: TPN Consult Notification XX ONE (09:15)
[2025-09-13] MEDS ORDERED: NS 500 ML IV SCH (10:05)
--- NOTE | 2025-09-13 10:45 | NUR ---
DISCUSSED SYMPTOM MANAGEMENT WITH PRIMARY RN. PT REPORTED TO HAVE SLEPT WELL THROUGH THE NIGHT AND MENTATION MUCH IMPROVED FROM LAST NIGHT. MD ROUNDING ON PT CURRENTLY.
[2025-09-13] MEDS ORDERED: [UNRECOGNIZED DRUG - OTHER] IV SCH (17:00)
[2025-09-13] MEDS ORDERED: PARENTERAL ELECTOLYTES POTASSIUM PHOSPHATE DIBASIC MM MULTIVITAMINS IV SCH (17:00)
--- NOTE | 2025-09-13 18:37 | NUR ---
SHIFT SUMMARY: ASSUMED PATIENT FROM SAFETY INTERN RN AT 0700. PT SLEEPING COMFORTABLY. WOKE UP A&OX4, PLEASANT AND COOPERATIVE WITH CARES THROUGHOUT SHIFT. PT REPOSITIONS HERSELF IN BED, AMBULATED WITH A 1 ASSIST TO BSC TO HELP HER MANAGE LINES AND TUBES. STATUS CHANGED TO PCU TODAY AND PT WAS TRANSFERRED VIA WHEELCHAIR TO PCU 18. CONSULT COMPLETED BY DR SALDIVAR, INSTRUCTED TO CONTINUE ON CLEAR LIQUIDS AND NPO AFTER MIDNIGHT FOR COLONSCOPY TOMORROW AFTERNOON. BOWEL PREP TO BE COMPLETED IN AM. PPN RUNNING AT 96MLS. VSS THROUGHTOUT SHIFT, FAMILY AT BEDSIDE, SHOWER COMPLETED TODAY. CALL LIGHT WITHIN REACH.
[2025-09-13 22:11] LABS: Hematocrit 22.6 % (33.0-51.0); Hemoglobin 7.9 g/dL (11.5-16.0)
[2025-09-14] VITALS (54 sets, daily range): BP systolic 80–162; BP diastolic 41–128
[2025-09-14 05:38] LABS: BASOPHILS ABSOLUTE AUTO 0.04 K/mm3 (0.00-0.23); BASOPHILS PERCENT AUTO 1 % (0-2); EOSINOPHILS ABSOLUTE AUTO 0.12 K/mm3 (0.00-0.68); EOSINOPHILS PERCENT AUTO 1 % (0-6); Hematocrit 23.7 % (33.0-51.0); Hemoglobin 8.2 g/dL (11.5-16.0); IMMATURE GRAN ABSOLUTE AUTO 0.05 K/mm3 (0.00-0.10); IMMATURE GRAN PERCENT AUTO 1 % (0-1); LYMPHOCYTES ABSOLUTE AUTO 1.63 K/mm3 (0.84-5.20); LYMPHOCYTES PERCENT AUTO 19 % (21-46); MONOCYTES ABSOLUTE AUTO 0.98 K/mm3 (0.16-1.47); MONOCYTES PERCENT AUTO 12 % (4-13); Mean Corpuscular HGB Conc 34.6 g/dL (31.5-36.5); Mean Corpuscular Volume 93 fL (80-100); NEUTROPHILS ABSOLUTE AUTO 5.57 K/mm3 (1.96-9.15); NEUTROPHILS PERCENT AUTO 66 % (41-73); NRBC ABSOLUTE 0.00 K/mm3 (0.00-0.02); NRBC Auto 0.0 /100 WBC (0.0-0.2); Platelet Count 190 K/mm3 (150-400); RDW Coefficient Variation 18.4 % (11.7-14.2); RDW Standard Deviation 57.0 fL (35.1-46.3)
--- NOTE | 2025-09-14 05:47 | NUR ---
NO ACUTE EVENTS OVERNIGHT. PT HAD COMPLAINTS OF LEFT CLAVICLE PAIN. MEDICATED PER DEC. PT SLEPT ON AND OFF THROUGHOUT THE NIGHT. PT ABLE TO AMBULATE TO BATHROOM INDEPENDENTLY AND WRITE OUTPUT ON WHITEBOARD. PPN INFUSING. PT CALLED APPROPPRIATELY. FOLLOWS COMMANDS. BED LOCKED IN LOWEST POSITION. CALL LIGHT WITHIN REACH. MOM AT BEDSIDE. PT AWAITING COLONOSCOPY TODAY.
[2025-09-14 05:49] LABS: Prothrombin Time Results 14.7 Sec (9.7-11.5)
[2025-09-14 06:00] LABS: Alanine Aminotransfer (ALT/SGP 77 U/L (12-78); Albumin, Blood 2.9 g/dL (3.4-5.0); Albumin/Globulin Ratio 0.8 (0.8-1.8); Anion Gap 8 mmol/L (3-11); Aspartate Aminotrans (AST/SGOT 279 U/L (12-37); Bilirubin, Total 4.2 mg/dL (0.1-1.0); Blood Urea Nitrogen 9 mg/dL (8-24); CO2, Blood 22 mmol/L (21-32); Calcium, Blood 8.0 mg/dL (8.5-10.1); Chloride, Blood 109 mmol/L (98-108); Creatinine, Blood 0.30 mg/dL (0.40-1.00); Globulin, Blood 3.6 g/dL (2.2-4.0); Glucose, Blood 92 mg/dL (70-99); Magnesium, Blood 2.1 mg/dL (1.6-2.4); Phosphorus, Blood 3.0 mg/dL (2.5-4.9); Potassium, Blood 3.4 mmol/L (3.5-5.5); Sodium, Blood 136 mmol/L (136-145); Total Protein, Blood 6.5 g/dL (6.4-8.2); Triglycerides 171 mg/dL (30-140)
[2025-09-14] MEDS ORDERED: Witch Hazel/Glycerin PADS TOP SCH (07:15)
[2025-09-14 07:51] LABS: CALPROTECTIN,FECAL 7 ug/g (<=49)
--- NOTE | 2025-09-14 08:00 | NUR ---
INITIAL ASSESSMENT: Patient is awake and sitting up in bed. She is alert and oriented to self, place, date, and family at bedside. She reports 7/10 pain in her left shoulder/clavicle, she was medicated with 1 tab of oxycodone at this time. HRR, she is ST in the low 100s, shes medicated with her scheduled dose of metoprolol IV. LS CTA, Biox is 99% on RA. Patient has intermittent NPC. BT hyperactive this AM, she is drinking her crump-prep for her scheduled colonscopy today. PPP. VSS. IV potassium hung this am, she denies other needs at this time. Call light in reach.
[2025-09-14] MEDS ORDERED: Potassium Chl 20MEQ/Water100ML 100 ML IV SCH (09:00)
--- NOTE | 2025-09-14 09:00 | NUR ---
UPDATE: Patient has finished last of Suprep, call placed to Dr. Cano to make him aware she has finished and is also clear. Plan for upper and lower scope at 12. Patient and family made aware.
[2025-09-14] MEDS ORDERED: Midazolam HCl 1MG / ML 2ML Vial ONE (11:04)
--- NOTE | 2025-09-14 12:11 | NUR ---
PATIENT REFUSES URINE TEST DUE TO NOT HAVING TO URINATE AND DOES NOT WISH TO TRY. AGREES TO SERUM TEST. TWO VISITORS WITH PATIENT THAT SHE IDENTIFIES HER MOMS, ACCOMPANING PATIENT TO DAY SURGERY PRE-OP. PATIENT A/A X4, AGREES TO PLANNED PROCEDURE. STATES SHE IS FEELING BETER TODAY AND ONLY C/O IS RUQ ABDOMINAL DISCOMFORT SHE RATES 2/10.
--- NOTE | 2025-09-14 12:53 | NUR ---
09/14/25 [id number] Sheri Cano PATIENT STATES SHE DID NOT LIKE HAVING A MASK PLACED ON HER YESTERDAY DURING MRI AND ANXIOUS ABOUT TODAY'S PROCEDURE. DISCUSSED THIS WITH DR SALDIVAR. HE WOULD LIKE TO START SEDATION VERSED IV. ALSO DISCUSSED OVERALL HEALTH CONCERNS WITH DR SALDIVAR. PLAN FOR NURSE SEDATION WITH PROPOFOL.
[2025-09-14] MEDS ORDERED: Midazolam HCl 1MG / ML 2ML Vial IV SCH (12:55)
[2025-09-14] MEDS ORDERED: ePHEDrine Sulfate 50 MG/ML 1ML Injection ONE (13:23)
--- NOTE | 2025-09-14 14:43 | NUR ---
Update: Patient arrived back from Day Surgery, she is assisted to the bathroom to urinate. She is drowsy but awake. Dr. Cano at the bedside to discuss upper and lower results. He explained that everything looks relatively normal, she has some small ulcerations and some hemorrhoids that may cause some blood in the stool. VSS at this time. Verbal order to change lactulose to have 2-3 soft bowel movements daily. Patient is resting with her eyes closed, mom at bedside. Call light in reach.
[2025-09-14] MEDS ORDERED: Potassium Chl 20MEQ/Water100ML 100 ML IV ONE (15:05)
--- NOTE | 2025-09-14 15:30 | NUR ---
Update: Call placed to Dr. Spivey to clarify orders, see new orders. Discussed patients H/H results and the unit of blood that was ordered and not given due to the patients H/H coming back higher with repeat lab draws, is okay to hold unit until tomorrows AM labs. Patient contines to rest comfortably with mothers at bedside. VSS, Call light in reach.
--- NOTE | 2025-09-14 18:15 | NUR ---
Summary: Patient has been alert and oriented T/O the shift, she has been up independently in the room. She has been C/O left shoulder pain due to her fratured clavicle, she was medicated with Oxycodone and Fentanyl for break through pain. HRR, she has been SR-ST heart rate ranging from 80s-110. BP has been on the soft side post-procedure. BT hyperactive, she had an EGD and colonscopy today with good results. Dr. Cano talked with the family regarding results and the pending biopses. She was nauseated this am with having to drink the bowel prep, but was doing better after the procedure. No acute changes this shift. Patient is currently sitting up in bed tolerating a regular diet. Will report to oncoming RN.
[2025-09-14 18:37] LABS: Anion Gap 7.0 mmol/L (3-11); Blood Urea Nitrogen 7.0 mg/dL (8-24); CO2, Blood 21.0 mmol/L (21-32); Calcium, Blood 8.2 mg/dL (8.5-10.1); Chloride, Blood 111.0 mmol/L (98-108); Creatinine, Blood 0.36 mg/dL (0.40-1.00); Glucose, Blood 121.0 mg/dL (70-99); Potassium, Blood 3.5 mmol/L (3.5-5.5); Sodium, Blood 135.0 mmol/L (136-145)
[2025-09-15] VITALS (8 sets, daily range): BP systolic 92–110; BP diastolic 51–69
[2025-09-15 04:22] LABS: BASOPHILS ABSOLUTE AUTO 0.04 K/mm3 (0.00-0.23); BASOPHILS PERCENT AUTO 1 % (0-2); EOSINOPHILS ABSOLUTE AUTO 0.08 K/mm3 (0.00-0.68); EOSINOPHILS PERCENT AUTO 1 % (0-6); Hematocrit 22.0 % (33.0-51.0); Hemoglobin 7.5 g/dL (11.5-16.0); IMMATURE GRAN ABSOLUTE AUTO 0.03 K/mm3 (0.00-0.10); IMMATURE GRAN PERCENT AUTO 1 % (0-1); LYMPHOCYTES ABSOLUTE AUTO 1.44 K/mm3 (0.84-5.20); LYMPHOCYTES PERCENT AUTO 22 % (21-46); MONOCYTES ABSOLUTE AUTO 0.73 K/mm3 (0.16-1.47); MONOCYTES PERCENT AUTO 11 % (4-13); Mean Corpuscular HGB Conc 34.1 g/dL (31.5-36.5); Mean Corpuscular Volume 93 fL (80-100); NEUTROPHILS ABSOLUTE AUTO 4.13 K/mm3 (1.96-9.15); NEUTROPHILS PERCENT AUTO 64 % (41-73); NRBC ABSOLUTE 0.00 K/mm3 (0.00-0.02); NRBC Auto 0.0 /100 WBC (0.0-0.2); Platelet Count 156 K/mm3 (150-400); RDW Coefficient Variation 18.8 % (11.7-14.2); RDW Standard Deviation 59.2 fL (35.1-46.3)
--- NOTE | 2025-09-15 05:14 | NUR ---
SHIFT SUMMARY THIS RN ASSUMED CARE OF PATIENT AT 1900. PT A&O X4. SOME FORGETFULNESS AFTER AMBIEN GIVEN WHEN PATIENT IS WOKEN UP. EASILY REORIENTS. PT WAS ABLE TO TOLERATE A DINNER SO TPN REMAINED OFF OVERNIGHT. SR/ST ON MONITOR. BP STABLE. ON RA WITH SPO2 >92%. MEDICATING PER EMAR FOR LEFT SHOULDER PAIN. PT AMBULATING TO BATHROOM INDEPENDENTLY. PT TOOK A SHOWER DURING THIS SHIFT. MOTHER REMAINED AT BEDSIDE T/O THE NIGHT. POWERGLIDE TO OSCAR SALINE LOCKED. BED IN LOWEST POSITION AND CALL LIGHT WITHIN REACH. THIS RN WILL REPORT TO ONCOMING DAYSHIFT RN.
[2025-09-15 06:18] LABS: Alanine Aminotransfer (ALT/SGP 93.0 U/L (12-78); Albumin, Blood 2.6 g/dL (3.4-5.0); Albumin/Globulin Ratio 0.8 (0.8-1.8); Anion Gap 11.0 mmol/L (3-11); Aspartate Aminotrans (AST/SGOT 368.0 U/L (12-37); Bilirubin, Total 4.1 mg/dL (0.1-1.0); Blood Urea Nitrogen 7.0 mg/dL (8-24); CO2, Blood 20.0 mmol/L (21-32); Calcium, Blood 8.2 mg/dL (8.5-10.1); Chloride, Blood 111.0 mmol/L (98-108); Creatinine, Blood 0.29 mg/dL (0.40-1.00); Globulin, Blood 3.4 g/dL (2.2-4.0); Glucose, Blood 95.0 mg/dL (70-99); Magnesium, Blood 1.8 mg/dL (1.6-2.4); Potassium, Blood 3.1 mmol/L (3.5-5.5); Sodium, Blood 139.0 mmol/L (136-145); Total Protein, Blood 6.0 g/dL (6.4-8.2)
[2025-09-15 09:21] LABS: Albumin, Blood 2.7 g/dL (3.4-5.0); Anion Gap 9 mmol/L (3-11); Blood Urea Nitrogen 7 mg/dL (8-24); CO2, Blood 21 mmol/L (21-32); Calcium, Blood 7.9 mg/dL (8.5-10.1); Chloride, Blood 112 mmol/L (98-108); Creatinine, Blood 0.37 mg/dL (0.40-1.00); Glucose, Blood 90 mg/dL (70-99); Phosphorus, Blood 3.0 mg/dL (2.5-4.9); Potassium, Blood 3.0 mmol/L (3.5-5.5); Sodium, Blood 139 mmol/L (136-145)
[2025-09-15] MEDS ORDERED: Potassium Chl 20MEQ/Water100ML 100 ML IV STA (10:18)
[2025-09-15] MEDS ORDERED: Magnesium Sulf 2 GM/Water 50ML 50 ML IV ONE (10:20)
[2025-09-15] MEDS ORDERED: Potassium Chloride 10 Meq Tablet SA PO ONE (10:20)
[2025-09-15 14:54] LABS: Anion Gap 12.0 mmol/L (3-11); Blood Urea Nitrogen 6.0 mg/dL (8-24); CO2, Blood 19.0 mmol/L (21-32); Calcium, Blood 8.3 mg/dL (8.5-10.1); Chloride, Blood 109.0 mmol/L (98-108); Creatinine, Blood 0.36 mg/dL (0.40-1.00); Glucose, Blood 93.0 mg/dL (70-99); Potassium, Blood 3.9 mmol/L (3.5-5.5); Sodium, Blood 136.0 mmol/L (136-145)
--- NOTE | 2025-09-15 17:06 | NUR ---
SHIFT SUMMARY: PT TOOK A LARGE NAP IN THE MIDDLE OF THE SHIFT, OTHER THAN THAT SHE HAS BEEN A&O, COOPERATIVE W/CARE, ABLE TO MAKE NEEDS KNOWN. PT HAS BEEN INDEPENDENT IN ROOM W/FAMILY AT BEDSIDE. PT DENIES SOB, RA SATS >95%. PT DENIES CHEST PAIN, SR/ST ON MONITOR W/RATE MOSTLY 90s-100s, TOLERATING SCHEDULED IVP LOPRESSOR WELL. NO RESULTS YET FROM BIOPSIES TAKEN DURING EGD/COLONOSCPOPY. NO N/V THIS SHIFT, APPROX 4 BM SO FAR TODAY, LACTULOSE HELD PER ORDERS. ELECTROLYTES REPLETED THIS SHIFT. PT's MOTHER EXPRESSED CONCERN ABOUT DELIRIUM SETTING IN AGAIN, CONVERSATION HAD ABOUT WAYS TO AVOID DELIRIUM. AT THIS TIME, PT IS ON A WALK AROUND THE DEPT W/HER MOTHER AND IS TOLERATING IT WELL. REPORT HAS BEEN GIVEN TO GALEN COLIN TO ASSUME CARE OF PT.
--- NOTE | 2025-09-15 18:06 | NUR ---
Bedside shift report was received from GALEN Westfall. The pt took a walk with one of the parents, I'm not sure which one, but she had long brunette hair. Dr. Cano rounded with Khoi and with GALEN Jarrett.
[2025-09-15 22:19] LABS: SODIUM,STOOL 60 mmol/L
[2025-09-16] VITALS (7 sets, daily range): BP systolic 93–109; BP diastolic 44–63
[2025-09-16 03:28] LABS: BASOPHILS ABSOLUTE AUTO 0.04 K/mm3 (0.00-0.23); BASOPHILS PERCENT AUTO 1 % (0-2); EOSINOPHILS ABSOLUTE AUTO 0.09 K/mm3 (0.00-0.68); EOSINOPHILS PERCENT AUTO 2 % (0-6); Hematocrit 21.3 % (33.0-51.0); Hemoglobin 7.3 g/dL (11.5-16.0); IMMATURE GRAN ABSOLUTE AUTO 0.02 K/mm3 (0.00-0.10); IMMATURE GRAN PERCENT AUTO 0 % (0-1); LYMPHOCYTES ABSOLUTE AUTO 1.55 K/mm3 (0.84-5.20); LYMPHOCYTES PERCENT AUTO 27 % (21-46); MONOCYTES ABSOLUTE AUTO 0.62 K/mm3 (0.16-1.47); MONOCYTES PERCENT AUTO 11 % (4-13); Mean Corpuscular HGB Conc 34.3 g/dL (31.5-36.5); Mean Corpuscular Volume 94 fL (80-100); NEUTROPHILS ABSOLUTE AUTO 3.37 K/mm3 (1.96-9.15); NEUTROPHILS PERCENT AUTO 59 % (41-73); NRBC ABSOLUTE 0.00 K/mm3 (0.00-0.02); NRBC Auto 0.0 /100 WBC (0.0-0.2); Platelet Count 163 K/mm3 (150-400); RDW Coefficient Variation 19.4 % (11.7-14.2); RDW Standard Deviation 64.1 fL (35.1-46.3)
[2025-09-16 03:48] LABS: Alanine Aminotransfer (ALT/SGP 105.0 U/L (12-78); Albumin, Blood 2.5 g/dL (3.4-5.0); Albumin/Globulin Ratio 0.8 (0.8-1.8); Anion Gap 9.0 mmol/L (3-11); Aspartate Aminotrans (AST/SGOT 415.0 U/L (12-37); Bilirubin, Total 3.9 mg/dL (0.1-1.0); Blood Urea Nitrogen 6.0 mg/dL (8-24); CO2, Blood 21.0 mmol/L (21-32); Calcium, Blood 8.0 mg/dL (8.5-10.1); Chloride, Blood 113.0 mmol/L (98-108); Creatinine, Blood 0.36 mg/dL (0.40-1.00); Globulin, Blood 3.3 g/dL (2.2-4.0); Glucose, Blood 83.0 mg/dL (70-99); Magnesium, Blood 2.1 mg/dL (1.6-2.4); Potassium, Blood 3.4 mmol/L (3.5-5.5); Sodium, Blood 140.0 mmol/L (136-145); Total Protein, Blood 5.8 g/dL (6.4-8.2)
--- NOTE | 2025-09-16 05:46 | NUR ---
SHIFT SUMMARY PATIENT A/OX4. FAMILY AT BEDSIDE INITIALLY DURING SHIFT. PATIENT MEDICATED X2 FOR L CHEST WALL AND SHOULDER PAIN. PATIENT DID NOT WANT MELATONIN BUT TOOK AMBIEN FOR SLEEP. SHE SLEPT FOR SEVERAL HOURS AT A TIME. AMBULATED TO SEVERAL TIMES INDEPENDENTLY TO VOID/BM. SHE HAD SMALL AMOUNT OF RED TINGED BLOOD IN STOOL AT BEGINNING OF SHIFT. JOAQUIN PO INTAKE WELL. SKIN PALE AND SLIGHTLY JAUNDICED. COOPERATIVE WITH ALL CARE. VSS. PATIENT PROVIDED EDUCATION ON CURRENT ILLNESS, TREATMENT, AND PLAN OF CARE. SHE WAS RECEPTIVE TO PATIENT TEACHING. PLAN OF CARE ONGOING.
[2025-09-16 09:40] LABS: Albumin, Blood 2.6 g/dL (3.4-5.0); Anion Gap 10 mmol/L (3-11); Blood Urea Nitrogen 6 mg/dL (8-24); CO2, Blood 20 mmol/L (21-32); Calcium, Blood 8.0 mg/dL (8.5-10.1); Chloride, Blood 110 mmol/L (98-108); Creatinine, Blood 0.37 mg/dL (0.40-1.00); Glucose, Blood 93 mg/dL (70-99); Phosphorus, Blood 3.1 mg/dL (2.5-4.9); Potassium, Blood 3.1 mmol/L (3.5-5.5); Sodium, Blood 137 mmol/L (136-145)
[2025-09-16] MEDS ORDERED: Potassium Chl 20MEQ/Water100ML 100 ML IV STA (16:21)
[2025-09-16] MEDS ORDERED: Potassium Chloride 10 Meq Tablet SA PO SCH (16:30)
--- NOTE | 2025-09-16 18:39 | NUR ---
SHIFT SUMMARY: PT HAS BEEN MORE ALERT TODAY, Ox4, COOPERATIVE W/CARE, INDEPENDENT TO/FROM RESTROOM, SHOWERED TODAY AND AMBULATED IN HALLWAY W/FAMILY FOR 2 WALKS. PT MEDICATED PER EMAR FOR C/O L SHOULDER/CHEST PAIN. PT DENIES SOB, RA SATS >95%. SR/ST ON MONITOR, RATE 90s-100s, SCHEDULED IVP LOPRESSOR Q8H CONTINUES PER EMAR. 2 BMs SO FAR THIS SHIFT, PT MIGHT TOLERATE LACTULOSE DOSE THIS EVENING. K+ REPLETED THIS SHIFT, AMMONIA LEVELS RECHECKED, NEW ORDERS PLACED BY PROVIDER. PT AND FAMILY UPDATED AT BEDSIDE. PT CURRENTLY ON HER 3rd WALK W/FAMILY.
--- NOTE | 2025-09-16 19:10 | NUR ---
ASSUMPTION OF CARE: THIS RN TO ASSUME CARE OF PT. PT SITTING UP IN BED WITH MOTHER AT BEDSIDE. DENIES ANY COMPLANTS OR NEEDS AT THIS TIME. CALL LIGHT IN REACH.
[2025-09-16] MEDS ORDERED: N-Acetylcysteine 600 MG CAP PO SCH (21:00)
[2025-09-17 01:13] VITALS: BP 98/54
[2025-09-17 03:27] LABS: BASOPHILS ABSOLUTE AUTO 0.05 K/mm3 (0.00-0.23); BASOPHILS PERCENT AUTO 1 % (0-2); EOSINOPHILS ABSOLUTE AUTO 0.10 K/mm3 (0.00-0.68); EOSINOPHILS PERCENT AUTO 2 % (0-6); Hematocrit 23.6 % (33.0-51.0); Hemoglobin 7.9 g/dL (11.5-16.0); IMMATURE GRAN ABSOLUTE AUTO 0.02 K/mm3 (0.00-0.10); IMMATURE GRAN PERCENT AUTO 0 % (0-1); LYMPHOCYTES ABSOLUTE AUTO 1.69 K/mm3 (0.84-5.20); LYMPHOCYTES PERCENT AUTO 27 % (21-46); MONOCYTES ABSOLUTE AUTO 0.51 K/mm3 (0.16-1.47); MONOCYTES PERCENT AUTO 8 % (4-13); Mean Corpuscular HGB Conc 33.5 g/dL (31.5-36.5); Mean Corpuscular Volume 94 fL (80-100); NEUTROPHILS ABSOLUTE AUTO 3.95 K/mm3 (1.96-9.15); NEUTROPHILS PERCENT AUTO 63 % (41-73); NRBC ABSOLUTE 0.00 K/mm3 (0.00-0.02); NRBC Auto 0.0 /100 WBC (0.0-0.2); Platelet Count 182 K/mm3 (150-400); RDW Coefficient Variation 19.5 % (11.7-14.2); RDW Standard Deviation 66.9 fL (35.1-46.3)
[2025-09-17 03:50] LABS: Alanine Aminotransfer (ALT/SGP 113.0 U/L (12-78); Albumin, Blood 2.6 g/dL (3.4-5.0); Albumin/Globulin Ratio 0.7 (0.8-1.8); Anion Gap 10.0 mmol/L (3-11); Aspartate Aminotrans (AST/SGOT 391.0 U/L (12-37); Bilirubin, Total 4.5 mg/dL (0.1-1.0); Blood Urea Nitrogen 5.0 mg/dL (8-24); CO2, Blood 22.0 mmol/L (21-32); Calcium, Blood 8.2 mg/dL (8.5-10.1); Chloride, Blood 109.0 mmol/L (98-108); Creatinine, Blood 0.31 mg/dL (0.40-1.00); Globulin, Blood 3.8 g/dL (2.2-4.0); Glucose, Blood 96.0 mg/dL (70-99); Magnesium, Blood 1.8 mg/dL (1.6-2.4); Potassium, Blood 3.6 mmol/L (3.5-5.5); Sodium, Blood 137.0 mmol/L (136-145); Total Protein, Blood 6.4 g/dL (6.4-8.2)
[2025-09-17 04:07] VITALS: BP 108/58
--- NOTE | 2025-09-17 04:27 | NUR ---
PT ARRIVED TO FLOOR FROM PCU AT 0345. ALERT AND ORIENTED. COOPERATIVE WITH CARES. SLIGHTLY DROWSY AT TIMES DURING CONVERSATION BUT ANSWERING QUESTIONS APPROPRIATELY. ABLE TO MAKE NEEDS KNOWN. SEEMS SLIGHTLY IRRITATED WHILE BEING ASKED QUESTIONS. STATES SHE JUST WANTS TO GO HOME. PT IS A 1 PERSON SBA TO THE BATHROOM D/T WEAKNESS AND SLIGHTLY UNSTEADY GAIT. BED ALARM ON. REGULAR DIET. OSCAR POWER GLIDE IN PLACE, FLUSHING WELL. PT HAS 24 HOUR COPPER URINE SAMPLE BEING COLLECTED. AT 0420 PT WENT TO URINATE AND MISSED HAT IN TOILET. CALLED LAB, CONFIRMED PT WILL NEED TO RESTART 24 HOUR URINE SAMPLE. SKIN IS PALE AND SLIGHTLY JAUNDICED. VOICE IS SOFT AND OCCASIONALLY MUMBLED. COMPLAINING OF MILD CHEST WALL DISCOMFORT. REPORTS WILL CALL FOR PAIN MEDICATION WHEN NEEDED. PT STATED SHE HAS NO VAPE PENS IN HER POSESSION, "THEY TOOK THEM ALL FROM ME". EDUCATED PT ON THE REASON FOR NO VAPS PENS, PT VERBALIZED UNDERSTANDING. VSS. BED IN LOWEST POSITION. CALL LIGHT IN REACH.
--- NOTE | 2025-09-17 05:56 | NUR ---
TRANSFER TO MEDICAL FLOOR/ SHIFT SUMMARY: PT A&OX4. FOLLOWS COMMANDS AND MAKES NEEDS KNOWN TO STAFF. PT 24 HR COPPER URINE WAS STARTED THIS SHIFT. PT WAS ABLE TO GET SOME SLEEP PRIOR TO WAKING UP STATING THAT SHE MISSES HER MOM. THIS RN WAS HELPING PT FIND HER PHONE WHEN A VAPE WAS FOUND HIDDEN IN HER BEDDING. VAPE WAS CONFISCATED AND LOCKED IN DRAWER. PT HAS ASKED THIS RN SEVERAL TIMES FOR THE VAPE BACK OTHERWISE SHE IS GOING TO GET IN TROUBLE AND THAT SHE NEEDS SOMETHING TO TAKE THE EDGE OFF. PT EDUCATED ON WHY VAPE ARE NOT ALLOWED ON THE PROPERTY, PT APPEARS ANNOYED AND ADGITATED. BLOOD PRESSURE SOFT, LO[RESSOR PUSH HELD AT 0000. NO SIGNIFICANT EVENTS HAPPENED DURING THIS SHIFT. REPORT TO ALOK ROSARIO RN. PT TRANSPORTED TO ROOM 329 VIA HOSPITAL BED WITH BELONGINGS. PT CALLED MOTHER TO NOTIFY HER OF TRANSFER WITH THIS RN AT BEDSIDE.
[2025-09-17 07:42] VITALS: BP 106/61
--- NOTE | 2025-09-17 17:13 | NUR ---
PATIENT REQUESTED THIS AM FOR PG TO BE PULLED OUT BECAUSE IT WAS NOT PRETTY, PATIENT EDUCATED ON THE SMOKE FREE CAMPUS AND NO IGNIITION DEVICES PER [facility] POLICY, CHRISTINE REPORTED THE OTHE FLOOR TOULD HER SHE WAS ALLOWED TO GO OUTSIDE TO VAPE, RE-EDUCATED THIS AM WITH MOM AT BEDSIDE, REPORTED TO BOX PACKER
[2025-09-17 17:19] VITALS: BP 107/59
[2025-09-17 19:49] VITALS: BP 107/60
[2025-09-17 23:03] VITALS: BP 103/65
[2025-09-18 04:04] VITALS: BP 111/61
[2025-09-18 05:16] LABS: BASOPHILS ABSOLUTE AUTO 0.05 K/mm3 (0.00-0.23); BASOPHILS PERCENT AUTO 1 % (0-2); EOSINOPHILS ABSOLUTE AUTO 0.10 K/mm3 (0.00-0.68); EOSINOPHILS PERCENT AUTO 1 % (0-6); Hematocrit 22.1 % (33.0-51.0); Hemoglobin 7.6 g/dL (11.5-16.0); IMMATURE GRAN ABSOLUTE AUTO 0.03 K/mm3 (0.00-0.10); IMMATURE GRAN PERCENT AUTO 0 % (0-1); LYMPHOCYTES ABSOLUTE AUTO 1.64 K/mm3 (0.84-5.20); LYMPHOCYTES PERCENT AUTO 22 % (21-46); MONOCYTES ABSOLUTE AUTO 0.74 K/mm3 (0.16-1.47); MONOCYTES PERCENT AUTO 10 % (4-13); Mean Corpuscular HGB Conc 34.4 g/dL (31.5-36.5); Mean Corpuscular Volume 93 fL (80-100); NEUTROPHILS ABSOLUTE AUTO 4.93 K/mm3 (1.96-9.15); NEUTROPHILS PERCENT AUTO 66 % (41-73); NRBC ABSOLUTE 0.00 K/mm3 (0.00-0.02); NRBC Auto 0.0 /100 WBC (0.0-0.2); Platelet Count 164 K/mm3 (150-400); RDW Coefficient Variation 19.4 % (11.7-14.2); RDW Standard Deviation 65.3 fL (35.1-46.3)
[2025-09-18 05:43] LABS: Alanine Aminotransfer (ALT/SGP 98.0 U/L (12-78); Albumin, Blood 2.5 g/dL (3.4-5.0); Albumin/Globulin Ratio 0.7 (0.8-1.8); Anion Gap 10.0 mmol/L (3-11); Aspartate Aminotrans (AST/SGOT 304.0 U/L (12-37); Bilirubin, Total 4.2 mg/dL (0.1-1.0); Blood Urea Nitrogen 5.0 mg/dL (8-24); CO2, Blood 22.0 mmol/L (21-32); Calcium, Blood 8.2 mg/dL (8.5-10.1); Chloride, Blood 111.0 mmol/L (98-108); Creatinine, Blood 0.34 mg/dL (0.40-1.00); Globulin, Blood 3.7 g/dL (2.2-4.0); Glucose, Blood 98.0 mg/dL (70-99); Magnesium, Blood 1.7 mg/dL (1.6-2.4); Potassium, Blood 3.0 mmol/L (3.5-5.5); Sodium, Blood 140.0 mmol/L (136-145); Total Protein, Blood 6.2 g/dL (6.4-8.2)
--- NOTE | 2025-09-18 06:07 | NUR ---
SHIFT SUMMARY PT ALERT, ORIENTED,AND APPROPRIATE DURING THE SHIFT. OOB INDEPENDENTLY WITH STEADY GAIT. MEDICATED FOR PAIN WITH OXYCODONE PER EMAR. C/O ITCHING TO POWERGLIDE SITE- DRESSING CHANGED, SITE WNL. ORDER RECEIVED FOR 1X ATARAX, GIVEN WITH LITTLE RELIEF. PT CONTINUES TO BE JAUNDICED. FAMILY AT BEDSIDE DURING THE EVENING. MOM STAYED AT BEDSIDE OVERNIGHT. 24 HOUR URINE COLLECTION COMPLETED AND SENT TO LAB. PT SLEPT INTERMITTENTLY DURING THE NIGHT.
[2025-09-18 07:26] VITALS: BP 101/49
--- NOTE | 2025-09-18 08:46 | NUR ---
NOTE PT BLOOD PRESSURE 101/49, HR WAS 100 BPM. PT HAS SCHEDULED METOPROLOL ORDERED. PT REPORTED PAIN, THIS RN GAVE PT ORDERED OXY PRN. PT REPORTS PAIN AT [facility]. PT VOMMITED IN EMESIS BAG. ADDITIONAL EMESIS BAGS AT BEDSIDE. REPORTED TO DR. IRVING "PT REPORTED DID NOT KEEP PILLS DOWN." DR. IRVING GAVE VERBAL FOR IV ZOFRAN, AND AN ADDITIONAL PO POTASSIUM DUE TO EMESIS AND 3.[address] IRVING REPORTED "HOLD METOPROLOL AND GAVE VERBAL FOR PERAMETERS." PT IN BED, BED IN LOWEST POSITION, LOCKED, FAMILY AT BEDSIDE, CALL LIGHT IN REACH.
[2025-09-18] MEDS ORDERED: Ondansetron HCl 2 MG / ML 2ML Vial IV PRN (09:00)
[2025-09-18] MEDS ORDERED: N-ACETYL-L-CYS600 M1 PO (12:41)
[2025-09-18] MEDS ORDERED: LACT10SY PO (12:41)
[2025-09-18] MEDS ORDERED: METO25 PO (12:42)
[2025-09-18] MEDS ORDERED: MELATONIN5 M1 PO (12:42)
[2025-09-18] MEDS ORDERED: OXAYDO5 M1 PO (12:43)
[2025-09-18] MEDS ORDERED: RIFA550T2 PO (12:43)
[2025-09-18] MEDS ORDERED: ZOLP5 PO (12:44)
--- NOTE | 2025-09-18 13:49 | NUR ---
DISCHARGE NOTE PT A&OX4. PT ADMITED DUE TO TOXIC ENCEPHALOPATHY. PT INDEPENDENT. PT HAD NO EMESIS POST THIS AM. PT HAS ADVANCE DIET JOAQUIN ORDERS. PT ON REGULAR DIET. PT EATS POORLY. PT VSS. PT VOIDS. PT REPORTS "SOFT STOOL." INCENTIVE SPIROMETER AT BEDSIDE. PT REPORTS PAIN AT [facility] DUE TO "CPR RELATED PAIN." PAIN MANAGED WITH ICE PACK AND PER EMAR. DR. IRVING ORDERED DISCHARGE. THIS RN FAXED MEDS TO PREFERRED [facility]ACY[facility] THIS RN WENT OVER DISCHARGE INSTRUCTIONS AND MEDS. PT ESCORTED VIA WHEELCHAIR TO PATIENT ENTERANCE PT LEFT WITH PERSONAL BELONGINGS.
[2025-09-21 01:30] LABS: ALPHA-1-ANTITRYPSIN 185 mg/dL (90-200)
== END 2025-09-18 13:42 | disposition home or self-care (01) | DRG 208 ==
LOC: ER 05:48 → PCU 06:26 → ICUE 06:26 → EDBEDREQ 08:29 → EDBEDREQTM 08:29 → EDBEDREQ 08:31 → ICUE 08:36 → PCU 09-09 11:19 → ICUE 09-12 03:28 → PCU 09-13 13:54 → MEDS 09-17 03:33
PROVIDERS: Emergency Medicine; Family Medicine; Internal Medicine; Internal Medicine Gastroenterology; Student in an Organized Health Care Education/Training Program; ADMIT Hospitalist
PROC: 0BH17EZ Insertion of Endotracheal Airway into Trachea, Via Natural or Artificial Opening (ICD-10-PCS; principal; 2025-09-07)
PROC: 5A1935Z Respiratory Ventilation, Less than 24 Consecutive Hours (ICD-10-PCS; 2025-09-07)
PROC: 3E0336Z Introduction of Nutritional Substance into Peripheral Vein, Percutaneous Approach (ICD-10-PCS; 2025-09-07)
PROC: 3E03329 Introduction of Other Anti-infective into Peripheral Vein, Percutaneous Approach (ICD-10-PCS; 2025-09-07)
PROC: 3E02340 Introduction of Influenza Vaccine into Muscle, Percutaneous Approach (ICD-10-PCS; 2025-09-07)
PROC: 3E033XZ Introduction of Vasopressor into Peripheral Vein, Percutaneous Approach (ICD-10-PCS; 2025-09-08)
PROC: 30233N1 Transfusion of Nonautologous Red Blood Cells into Peripheral Vein, Percutaneous Approach (ICD-10-PCS; 2025-09-10)
PROC: 30233J1 Transfusion of Nonautologous Serum Albumin into Peripheral Vein, Percutaneous Approach (ICD-10-PCS; 2025-09-11)
PROC: 0DB98ZX Excision of Duodenum, Via Natural or Artificial Opening Endoscopic, Diagnostic (ICD-10-PCS; 2025-09-14)
PROC: 0DB78ZX Excision of Stomach, Pylorus, Via Natural or Artificial Opening Endoscopic, Diagnostic (ICD-10-PCS; 2025-09-14)
PROC: 0DBA8ZX Excision of Jejunum, Via Natural or Artificial Opening Endoscopic, Diagnostic (ICD-10-PCS; 2025-09-14)
PROC: 0DBB8ZX Excision of Ileum, Via Natural or Artificial Opening Endoscopic, Diagnostic (ICD-10-PCS; 2025-09-14)
PROC: 0DBF8ZX Excision of Right Large Intestine, Via Natural or Artificial Opening Endoscopic, Diagnostic (ICD-10-PCS; 2025-09-14)
DX: J96.01 Acute respiratory failure with hypoxia (principal); K25.4 Chronic or unspecified gastric ulcer with hemorrhage; G93.41 Metabolic encephalopathy; I47.20 Ventricular tachycardia, unspecified; E46 Unspecified protein-calorie malnutrition; J98.11 Atelectasis; E72.20 Disorder of urea cycle metabolism, unspecified; E51.2 Wernicke's encephalopathy; D68.9 Coagulation defect, unspecified; R44.0 Auditory hallucinations; Z78.1 Physical restraint status; J45.909 Unspecified asthma, uncomplicated; I49.3 Ventricular premature depolarization; E87.6 Hypokalemia; E86.0 Dehydration; K70.10 Alcoholic hepatitis without ascites; F12.90 Cannabis use, unspecified, uncomplicated; F41.8 Other specified anxiety disorders; F41.0 Panic disorder [episodic paroxysmal anxiety]; E83.42 Hypomagnesemia; E83.39 Other disorders of phosphorus metabolism; I08.1 Rheumatic disorders of both mitral and tricuspid valves; R45.1 Restlessness and agitation; K52.9 Noninfective gastroenteritis and colitis, unspecified; R74.01 Elevation of levels of liver transaminase levels; F10.26 Alcohol dependence with alcohol-induced persisting amnestic disorder; D64.9 Anemia, unspecified; K76.82 Hepatic encephalopathy; K64.8 Other hemorrhoids; D72.829 Elevated white blood cell count, unspecified; R44.1 Visual hallucinations; R41.0 Disorientation, unspecified; K76.9 Liver disease, unspecified; G62.1 Alcoholic polyneuropathy; Z23 Encounter for immunization; R94.31 Abnormal electrocardiogram [ECG] [EKG]; Z87.19 Personal history of other diseases of the digestive system; Z91.0110 Allergy to milk products, unspecified; Z88.1 Allergy status to other antibiotic agents; Z91.040 Latex allergy status; Z91.018 Allergy to other foods; Z68.21 Body mass index [BMI] 21.0-21.9, adult; Z79.899 Other long term (current) drug therapy; Z87.891 Personal history of nicotine dependence
CPT/HCPCS: 31500; 36415; 36430; 51702; 70450; 70551; 71045; 74177; 80047; 80048; 80053; 80069; 80320; 81001; 82103; 82140; 82180; 82306; 82330; 82390; 82436; 82550; 82570; 82607; 82746; 82784; 82803; 83605; 83735; 83993; 84100; 84132; 84133; 84145; 84252; 84300; 84302; 84425; 84443; 84478; 84484; 84540; 84590; 84703; 84999; 85014; 85018; 85025; 85610; 85730; 86015; 86038; 86140; 86381; 86850; 86900; 86901; 86920; 86923; 87040; 87507; 88305; 88342; 93005; 93010; 93306; 94002; 94003; 96374-59; 99291-25; 99292; A9270; C1751; G0480; J0132; J0282; J0612; J0696; J1200; J1630; J1650; J2060; J2250; J2405; J2470; J2543; J2704; J3010; J3411; J3475; J3480; J3486; J7030; J7040; J7050; J7060; J7070; J7120; P9016; P9047; Q9967

== ENCOUNTER → 2025-09-27 | Outpatient (CLI) | payer OTHER ==
[~2025-09-27] MED LIST changes: +FOLI1 PO; +GABA100 PO; +GABA300 PO; +LACT10SY PO; +MELATONIN5 M1 PO; +METO25 PO; +N-ACETYL-L-CYS600 M1 PO; +OMEP20ER PO; +OXAYDO5 M1 PO; +OXYC5; +Percocet 5-3251 EACH PO; +RIFA550T2 PO; +ZOLP5 PO
== END ==
LOC: LAB 11:15 → LAB SHORT 11:15
PROVIDERS: Student in an Organized Health Care Education/Training Program
DX: E83.00 Disorder of copper metabolism, unspecified (principal)
CPT/HCPCS: 81050; 82525